=== PATIENT | female | born 1980 | race Caucasian/White ===

== ENCOUNTER 2016-06-25 21:54 | Emergency (ER) | payer MEDICARE ==
[2016-04-23 09:56] VITALS: BMI 17.4
[~2016-06-25 21:54] MED LIST: BREO ELLIPTA 11 EACH INH; CLEOCIN HCL150 MG PO; CLEOCIN HCL75 MG PO; CREON DR 6,0001 EACH PO; ED A HIST; HYDROCODON-ACE1 EAC7 PO; HYDROCODONE-APA1 TAB PO; KEFLEX250 MG PO; KLONOPIN0.5 MG PO; PHENERGAN25 M1 PO; PREDNISONE10 MG PO; PREDNISONE5 MG PO
[2016-06-25 22:42] LABS: APPEARANCE CLEAR (CLEAR); BILIRUBIN NEGATIVE (NEGATIVE); COLOR STRAW (YELLOW); GLUCOSE NEGATIVE (NEGATIVE); KETONE NEGATIVE (NEGATIVE); LEUKOCYTE ESTERASE NEGATIVE (NEGATIVE); NITRITE NEGATIVE (NEGATIVE); PROTEIN NEGATIVE (NEGATIVE); UROBILINOGEN NORMAL (NORMAL)
[2016-06-25 23:37] LABS: UDS - AMPHET NEGATIVE QUAL (NEGATIVE); UDS - BARB NEGATIVE QUAL (NEGATIVE); UDS - BENZO POSITIVE QUAL (NEGATIVE); UDS - COCAINE NEGATIVE QUAL (NEGATIVE); UDS - METH NEGATIVE QUAL (NEGATIVE); UDS - OPIATE POSITIVE QUAL (NEGATIVE); UDS - PCP NEGATIVE QUAL (NEGATIVE); UDS - THC POSITIVE QUAL (NEGATIVE)
== END 2016-06-25 23:24 | disposition home or self-care (01) ==
LOC: D.ER 21:54
PROVIDERS: Emergency Medicine
DX: N39.0 Urinary tract infection, site not specified (principal); R11.10 Vomiting, unspecified; F31.9 Bipolar disorder, unspecified; M06.9 Rheumatoid arthritis, unspecified; G40.909 Epilepsy, unspecified, not intractable, without status epilepticus; F17.200 Nicotine dependence, unspecified, uncomplicated

== ENCOUNTER 2016-08-16 13:20 | Inpatient (IN) | payer MEDICARE ==
[~2016-08-16] VITALS: Ht 149.9 cm; Wt 40.4 kg
--- NOTE | ~2016-08-16 | OP ---
PATIENT NAME: VENESSA GHOSH MEDICAL RECORD: [id number] :84 LOCATION:D.MS [address] ADMISSION DATE:08/16/16 SURGEON: MENDEL GUZMAN MD DATE OF OPERATION: 08/17/2016 PREOPERATIVE DIAGNOSIS: Subacute T11 compression fracture. POSTOPERATIVE DIAGNOSIS: Subacute T11 compression fracture. PROCEDURE: T11 kyphoplasty and T11 bone biopsy. SURGEON: Mendel Guzman MD INDICATION: Venessa Ghosh has a history of rheumatoid arthritis, chronic steroid use, osteoporosis, multiple compression fractures. She has a seizure disorder, sustained a T11 compression fracture secondary to the seizure. She was unable to tolerate a thoracolumbosacral orthosis brace. She could not get out of bed with the brace and anti-inflammatory drugs and narcotic analgesics. Therefore, she failed conservative treatment, has osteoporosis and was therefore taken to operating room for a T11 kyphoplasty and bone biopsy. Preoperative x-rays demonstrated T11 compression fracture on multiple ____. DESCRIPTION AND TECHNIQUE: After induction of general endotracheal anesthesia, the patient was rolled prone on chest and hip rolls. The thoracic spine was prepped and draped in usual sterile fashion. Fluoroscopic x-ray, AP and lateral, localized T11 pedicle. A 1:100,000 epinephrine and 1% lidocaine was infiltrated in the skin. A stab incision was created with #11 blade, a Jamshidi needle was used to cannulate the pedicle at T11 on the left side, with traverse crossing midline, a kyphoplasty balloon was advanced across the midline and inflated under fluoroscopic control. The balloon was withdrawn and then the void created was back filled with methyl methacrylate bone cement. Prior to this, a bone biopsy was sent off to pathology for diagnosis. Next, the cannula was withdrawn and a Steri-Strip was used to cover the puncture wounds. A sterile dressing was applied to the wound. The patient was awakened in good condition and taken to recovery. All counts were reported as correct. ESTIMATED BLOOD LOSS: Minimal. Confirmation on fluoroscopy demonstrated a good distribution of the bone cement. TRANSINT:[id number] Voice Confirmation ID: [id number] DOCUMENT ID: [id number] MENDEL GUZMAN MD CC: [id number] DICTATION DATE: 08/17/16 1314 DENTAL CERAMIST HELPER: 08/17/162134 ADM IN [address] [address]
--- NOTE | ~2016-08-16 | CN ---
PATIENT NAME:HAL GHOSH MEDICAL RECORD: [id number] : 84 LOCATION:D.MS [address]222 ADMIT DATE: 08/16/16 ACCOUNT: [id number] CONSULTING PHYSICIAN: BLAIR GUZMAN MD REFERRING PHYSICIAN: TEA JESUS MD DATE OF CONSULTATION: 08/17/2016 Neurosurgery Consultation HISTORY OF PRESENT ILLNESS: Ms. Ghosh is an elderly-appearing white female who has a long history of rheumatoid arthritis, seizure disorder, chronic steroid use and osteoporosis. She suffered multiple compression fractures in the past, has failed conservative treatment including thoracolumbosacral bracing and narcotic analgesics. She is unable to ambulate in a thoracic brace. PHYSICAL EXAMINATION: GENERAL: An elderly-appearing white female in obvious pain, lying supine on the stretcher, in a TLSO. NEUROLOGIC: She is alert and oriented times 3. Cranial nerves intact. Motor strength is 5/5 and equal in all 4 extremities to detailed testing. She has fair range of motion of her cervical spine. Thoracic spine shows tenderness to percussion at T11. She has no sensory deficit. AP and lateral thoracic spine films show a subacute T11 compression fracture and an old-appearing T6 compression fracture. IMPRESSION: Subacute T11 compression fracture, which has failed conservative treatment secondary to osteoporosis. PLAN: T11 kyphoplasty with bone biopsy. Continue TLSO and narcotic analgesic for pain management. Thank you for the consult. TRANSINT:[id number] Voice Confirmation ID: [id number] DOCUMENT ID: [id number] BLAIR GUZMAN MD CC: [id number] DICTATION DATE: 08/17/16 1317 VETERINARY VIRUS SERUM INSPECTOR: 08/17/162246 [place] [address]
[2016-08-16 16:02] LABS: APPEARANCE CLEAR (CLEAR); BILIRUBIN NEGATIVE (NEGATIVE); COLOR YELLOW (YELLOW); GLUCOSE NEGATIVE (NEGATIVE); KETONE NEGATIVE (NEGATIVE); LEUKOCYTE ESTERASE NEGATIVE (NEGATIVE); NITRITE NEGATIVE (NEGATIVE); PROTEIN NEGATIVE (NEGATIVE); SPECIFIC GRAVITY 1.005 (1.005-1.020); UROBILINOGEN NORMAL (NORMAL)
[2016-08-16 16:20] LABS: BASOPHILS 0.1 % (0.0-2.0); EOSINOPHILS 0 % (0-7); HEMATOCRIT 39.7 % (36.0-48.0); HEMOGLOBIN 12.7 g/dL (12-16); IMMATURE GRANULOCYTES 0.4 % (0-5); LYMPHOCYTES 7.8 % (15-50); MCH 27.6 pg (26.0-34.0); MCV 86.3 fL (80.0-100.0); MEAN PLATELET VOLUME 9.7 fL (7.4-10.4); MONOCYTES 3.3 % (2-11); NEUTROPHILS 88.4 % (40-80); RDW 15.2 % (11.5-14.5)
[2016-08-16 16:24] LABS: PLATELET COUNT 436 10x3/uL (130-400)
[2016-08-16 16:40] LABS: ALBUMIN 3.7 g/dL (3.4-5.0); ALKALINE PHOSPHATASE 74 U/L (46-116); ALT (SGPT) 16 U/L (10-68); BILIRUBIN - TOTAL 0.44 mg/dL (0.2-1.3); CALC OSMOLALITY 272 mosm/kg (275-300); CALCIUM 8.9 mg/dL (8.5-10.1); CARBON DIOXIDE 26.9 mmol/L (21.0-32.0); CHLORIDE - SERUM 99 mmol/L (98-107); CREATININE - SERUM 0.7 mg/dL (0.6-1.3); POTASSIUM - SERUM 3.8 mmol/L (3.5-5.1); PROTEIN - SERUM 7.2 g/dL (6.4-8.2); SODIUM 136 mmol/L (136-145); UREA NITROGEN 9 mg/dL (7-18); eGFR NON AFRICAN AMERICAN > 90 mL/min (90-120)
[2016-08-16 16:41] LABS: GLUCOSE 129 mg/dL (74-106)
--- NOTE | 2016-08-16 17:40 | NUR ---
PT TO ROOM 2222 FROM ER VIA [employer].PT WITHOUT DISTRESS AT PRESENT. AT [facility].ORIENTATION TO ROOM.CALL LIGHT IN REACH
[2016-08-16] MEDS ORDERED: KEPPRA750 MG PO (17:41)
[2016-08-16] MEDS ORDERED: YASMIN 28 TABLE1 TAB (17:43)
[2016-08-16] MEDS ORDERED: ZOFRAN ODT4 MG/UDTAB PO (17:43)
--- NOTE | 2016-08-16 18:30 | NUR ---
MEDS ORDERED. ASSESSMENT PER ADMIT PACK.CALL LIGHT IN REACH
[2016-08-16 18:47] VITALS: BP 108/78; Ht 149.9 cm; Wt 40.4 kg
[2016-08-16 19:00] VITALS: BP 107/80
--- NOTE | 2016-08-16 19:25 | NUR ---
RECIEVED SHIFT REPORT. PT IS LYING IN BED. ALERT AND ORIENTED AND ABLE TO VERBALIZE NEEDS. IV IS PATENT AND FLUIDS ARE RUNNING PER ORDER. PT IS ON BEDREST AT THIS TIME. SCD'S ON. PT STATES PAIN IS 8/10 WITH SQL BI DEVELOPER PUMP. NO NEEDS ARE VERBALIZED AT THIS TIME. WILL CONTINUE TO MONITOR. SIDE RAILS ARE UP X 2. BED IS IN LOWEST POSITION. CALL LIGHT IS WITHIN REACH.
--- NOTE | 2016-08-16 20:20 | NUR ---
SHIFT ASSESSMENT COMPLETED. NIGHT MEDS GIVEN WITH NO PROBLEMS. PT C/O PAIN 12/20. ADMINISTERED PRESCRIBED PRN BOLUS 0.4 MG ON NIGHT WAREHOUSE SELECTOR PUMP. NO FURTHER NEEDS ARE VOICED. WILL MONITOR. SIDE RAILS X 2. BED LOW. CALL LIGHT IN REACH.
[2016-08-17] VITALS: BP 112/86
[2016-08-17 04:00] VITALS: BP 110/71
[2016-08-17 05:48] LABS: BASOPHILS 0.1 % (0.0-2.0); EOSINOPHILS 0.7 % (0-7); HEMOGLOBIN 10.4 g/dL (12-16); IMMATURE GRANULOCYTES 0.4 % (0-5); LYMPHOCYTES 13.4 % (15-50); MCH 26.3 pg (26.0-34.0); MCHC 30.6 g/dL (31.0-37.0); MCV 85.9 fL (80.0-100.0); MEAN PLATELET VOLUME 9.7 fL (7.4-10.4); MONOCYTES 12.5 % (2-11); NEUTROPHILS 72.9 % (40-80); PLATELET COUNT 388 10x3/uL (130-400); RBC 3.96 10x6/uL (4.00-5.40); RDW 14.8 % (11.5-14.5)
[2016-08-17 06:14] LABS: ALBUMIN 3.2 g/dL (3.4-5.0); ALKALINE PHOSPHATASE 57 U/L (46-116); ALT (SGPT) 14 U/L (10-68); CALCIUM 8.2 mg/dL (8.5-10.1); CARBON DIOXIDE 28.2 mmol/L (21.0-32.0); CHLORIDE - SERUM 98 mmol/L (98-107); CREATININE - SERUM 0.6 mg/dL (0.6-1.3); GLUCOSE 95 mg/dL (74-106); PROTEIN - SERUM 6.8 g/dL (6.4-8.2); SODIUM 134 mmol/L (136-145); eGFR NON AFRICAN AMERICAN > 90 mL/min (90-120)
[2016-08-17 06:45] LABS: CALC OSMOLALITY 264 mosm/kg (275-300); UREA NITROGEN 4 mg/dL (7-18)
--- NOTE | 2016-08-17 07:25 | NUR ---
ASSESSMENT PER FLOW SHEET.PT WITHOUT DISTRES.BRACE IN PLACE.GEOTHERMAL PRODUCTION MANAGER FOR PAIN.CALL LIGHT IN REACH
[2016-08-17 08:03] VITALS: BP 115/83
--- NOTE | 2016-08-17 09:50 | NUR ---
CONSENTS TO CHART
--- NOTE | 2016-08-17 10:51 | NUR ---
Patient Name: HAL JAMES Admission Status: ER Accout number: [id number] Admission Date: 08-16-2016 : 1980 Admission Diagnosis:FATIGUE FRACTURE OF VERTEBRA, THORACIC REGION, INIT FOR Attending: TANYA Current LOS: 1 Anticipated DC Date: 08-20-2016 Planned Disposition: Home Primary Insurance: MEDICARE A & B Discharge Planning Comments: CM MET WITH PATIENT AND SPOUSE (JAM) REGARDING D/C NEEDS AND PLANS. PATIENT STATED HER SPOUSE WILL DRIVE HER HOME AT DISCHARGE. PATIENT HAS 2 STEPS W/RAILS TO ENTER HOME AND NO STAIRS INSIDE. PATIENT STATED SHE IS INDEPENDENT WITH HER CARE AND HAS NO DME AT HOME. PATIENTS PCP IS DR. PATTON IN [place] AND SHE USES [facility] ON [address]. PATIENT DOES NOT THINK SHE WILL NEED HOME HEALTH AND SPOUSE STATED HE WOULD BE AT HOME WITH HER. CM WILL CONTINUE TO FOLLOW PATIENT WITH D/C NEEDS AND PLANS. PCP DR. PATTON ([place]) [facility] ON [address]- [phone] JAM (SPOUSE) [phone] Breaker Engineer: Bita Aguilar Is the patient Alert and Oriented? Yes 0 * How many steps to enter\exit or inside your home? 2 RAIL 0 * PCP DR. PATTON ([place]) 0 * Pharmacy [facility] [address] 0 * Preadmission Environment Home with Family 0 * ADLs Independent 0 * Equipment None 0 * List name and contact numbers for known caregivers / representatives who currently or will assist patient after discharge: JAM (SPOUSE) [phone] 0 * Community resources currently utilized None 0 * Additional services required to return to the preadmission environment? Yes 0 * Can the patient safely return to the preadmission environment? Yes 0 * Has this patient been hospitalized within the prior 30 days at any hospital? No 0 Grand Total: 0
--- NOTE | 2016-08-17 11:36 | NUR ---
PRE MEDS ORDERED.TO OR VIA BED
--- NOTE | 2016-08-17 12:57 | NUR ---
1252: UNABLE TO FIND FAMILY EXT [phone],[phone]
--- NOTE | 2016-08-17 13:28 | NUR ---
DEMEROL GIVEN FOR SHIVERING. POSITIVE RESPONE NOTED
[2016-08-17 13:45] VITALS: BP 117/86
--- NOTE | 2016-08-17 13:45 | NUR ---
RECEIVED BACK TO ROOM 2222 FROM RECOVERY ROOM VIA BED. VSS. FATHER IN ROOM. CALL LIGHT IN REACH.
--- NOTE | 2016-08-17 13:45 | NUR ---
BACK FROM PACU VIA BED,WITHOUT DISTRESS.CALL LIGHT IN REACH
--- NOTE | 2016-08-17 15:30 | NUR ---
REPORT RECEIVED FROM ALIYA MATIAS. NO NEEDS VOICED AT THIS TIME. CALL LIGHT IN REACH.
--- NOTE | 2016-08-17 15:48 | NUR ---
MRI SCANNER IS DOWN. WILL DO WHEN SCANNER COMES BACK UP.
--- NOTE | 2016-08-17 17:12 | NUR ---
ASSISTED PATIENT WITH REPOSITIONING IN BED AND GETTING COMFORTABLE. NO OTHER NEEDS VOICED AT THIS TIME. CALL LIGHT IN REACH.
--- NOTE | 2016-08-17 18:11 | NUR ---
NO CHANGES IN INITIAL ASSESSMENT. CALL LIGHT IN REACH. SCDs TO BLE. WILL CONTINUE WITH PLAN OF CARE.
[2016-08-17 20:00] VITALS: BP 90/48
[2016-08-18] VITALS: BP 86/57
--- NOTE | 2016-08-18 00:41 | NUR ---
PT IS AWAKE WITH THE ASSIGNED NURSE IN THE ROOM. SHE IS WEARING HER BACK BRACE AND KEEPING HER PAIN UNDER CONTROL WITH A AUTOMATION TECH WHICH IS ORDERED. RESPIRATIONS ARE EASY AND UNLABORED WITH NO DISTRESS NOTED. THE BED IS LOW, RAILS UP X'S 2 WITH THE CALL LIGHT AT HAND.
--- NOTE | 2016-08-18 01:57 | NUR ---
INVASIVE CARDIOVASCULAR TECHNOLOGIST SYRINGE CHANGED OUT, REGLAN GIVEN FOR NAUSEA
[2016-08-18 04:00] VITALS: BP 90/64
[2016-08-18 05:10] LABS: BASOPHILS 0.1 % (0.0-2.0); EOSINOPHILS 0.6 % (0-7); HEMATOCRIT 28.1 % (36.0-48.0); HEMOGLOBIN 8.5 g/dL (12-16); IMMATURE GRANULOCYTES 0.3 % (0-5); MCH 26.7 pg (26.0-34.0); MCHC 30.2 g/dL (31.0-37.0); MEAN PLATELET VOLUME 9.5 fL (7.4-10.4); MONOCYTES 9.2 % (2-11); NEUTROPHILS 77.8 % (40-80); PLATELET COUNT 344 10x3/uL (130-400); RBC 3.18 10x6/uL (4.00-5.40); RDW 15.2 % (11.5-14.5)
[2016-08-18 05:20] LABS: MCV 88.4 fL (80.0-100.0); WBC 10.6 10x3/uL (4.8-10.8)
[2016-08-18 05:30] LABS: ALBUMIN 2.6 g/dL (3.4-5.0); ALKALINE PHOSPHATASE 55 U/L (46-116); ALT (SGPT) 12 U/L (10-68); BILIRUBIN - TOTAL 0.18 mg/dL (0.2-1.3); CALCIUM 7.7 mg/dL (8.5-10.1); CARBON DIOXIDE 28.1 mmol/L (21.0-32.0); CHLORIDE - SERUM 105 mmol/L (98-107); CREATININE - SERUM 0.5 mg/dL (0.6-1.3); GLUCOSE 97 mg/dL (74-106); PROTEIN - SERUM 5.6 g/dL (6.4-8.2); SODIUM 139 mmol/L (136-145); eGFR NON AFRICAN AMERICAN > 90 mL/min (90-120)
[2016-08-18 05:33] LABS: CALC OSMOLALITY 273 mosm/kg (275-300); POTASSIUM - SERUM 3.7 mmol/L (3.5-5.1); UREA NITROGEN 0 mg/dL (7-18)
--- NOTE | 2016-08-18 07:30 | NUR ---
RECIEVED PT DURING WALKING ROUNDS. PT RESTING IN BED WITH COMPLAINTS OF PAIN OF A 7 ON A SCALE OF 1-10. RESOURCE PROGRAM TEACHER IN USE. ASSESSMENT DONE PER FLOWSHEET. BED IN LOW POSITION AND CALL LIGHT WITHIN REACH. WILL CONTINUE TO MONITOR.
[2016-08-18 08:25] VITALS: BP 102/69
--- NOTE | 2016-08-18 08:30 | NUR ---
SURVEY WORKER BOLUS GIVEN AT THIS TIME PER ORDER.
--- NOTE | 2016-08-18 10:30 | NUR ---
PATIENT IS UP OUT OF ROOM AND AMBULATING AROUND THE NURSING UNIT. PATIENT DENIES ANY PROBLEMS AT PRESENT TIME. WILL CONTINUE TO MONITOR PATIENT.
--- NOTE | 2016-08-18 11:40 | NUR ---
DC'D BUCKLE COVERER AT THIS TIME. PT TAKEN FOR MRI.
== END 2016-08-18 17:14 | disposition home or self-care (01) | DRG 478 ==
LOC: D.ER 13:20 → D.MS 15:45
PROVIDERS: Neurological Surgery; Physician Assistant Medical; ADMIT Family Medicine
PROC: 0PB43ZX Excision of Thoracic Vertebra, Percutaneous Approach, Diagnostic (ICD-10-PCS; 2016-08-17)
PROC: 0PU43JZ Supplement Thoracic Vertebra with Synthetic Substitute, Percutaneous Approach (ICD-10-PCS; 2016-08-17)
PROC: 0PS43ZZ Reposition Thoracic Vertebra, Percutaneous Approach (ICD-10-PCS; principal; 2016-08-17 12:00)
DX: M48.44XA Fatigue fracture of vertebra, thoracic region, initial encounter for fracture (principal); F17.203 Nicotine dependence unspecified, with withdrawal; F44.5 Conversion disorder with seizures or convulsions; J40 Bronchitis, not specified as acute or chronic; F41.9 Anxiety disorder, unspecified; F32.9 Major depressive disorder, single episode, unspecified; M81.0 Age-related osteoporosis without current pathological fracture

== ENCOUNTER 2016-08-23 11:35 | Emergency (ER) | payer MEDICARE ==
[2016-08-16 18:47] VITALS: BMI 18.0
[~2016-08-23 11:35] MED LIST changes: +KEPPRA750 MG PO; +YASMIN 28 TABLE1 TAB; +ZOFRAN ODT4 MG/UDTAB PO
== END 2016-08-23 13:50 | disposition home or self-care (01) ==
LOC: D.ER 11:35
DX: G89.18 Other acute postprocedural pain (principal); M54.6 Pain in thoracic spine

== ENCOUNTER 2016-09-07 16:19 | Emergency (ER) | payer MEDICARE ==
[2016-08-16 18:47] VITALS: BMI 18.0
== END 2016-09-07 16:50 | disposition left against medical advice (07) ==
LOC: D.ER 16:19
DX: Z02.9 Encounter for administrative examinations, unspecified (principal)

== ENCOUNTER 2016-09-13 19:07 | Emergency (ER) | payer MEDICARE ==
[2016-08-16 18:47] VITALS: BMI 18.0
== END 2016-09-13 21:05 | disposition home or self-care (01) ==
LOC: D.ER 19:07
DX: M06.9 Rheumatoid arthritis, unspecified (principal); Z98.890 Other specified postprocedural states; F17.200 Nicotine dependence, unspecified, uncomplicated

== ENCOUNTER 2016-11-09 08:48 | Emergency (ER) | payer MEDICARE ==
[2016-08-16 18:47] VITALS: BMI 18.0
== END 2016-11-09 10:18 | disposition home or self-care (01) ==
LOC: D.ER 08:48
DX: R10.2 Pelvic and perineal pain (principal); F31.89 Other bipolar disorder; G40.909 Epilepsy, unspecified, not intractable, without status epilepticus; F17.200 Nicotine dependence, unspecified, uncomplicated

== ENCOUNTER 2016-12-18 17:33 | Emergency (ER) | payer MEDICARE ==
[2016-08-16 18:47] VITALS: BMI 18.0
== END 2016-12-18 21:38 | disposition home or self-care (01) ==
LOC: D.ER 17:33
DX: J06.9 Acute upper respiratory infection, unspecified (principal); B37.0 Candidal stomatitis; F31.89 Other bipolar disorder; G40.909 Epilepsy, unspecified, not intractable, without status epilepticus; R49.0 Dysphonia; R09.82 Postnasal drip; J02.9 Acute pharyngitis, unspecified; R53.1 Weakness

== ENCOUNTER 2016-12-20 17:03 | Emergency (ER) | payer MEDICARE ==
[2016-08-16 18:47] VITALS: BMI 18.0
[2016-12-20 18:01] LABS: BASOPHILS 0.2 % (0-2); EOSINOPHILS 1.1 % (0-7); HEMATOCRIT 40.5 % (36.0-48.0); HEMOGLOBIN 12.9 g/dL (12-16); IMMATURE GRANULOCYTES 1.6 % (0-5); LYMPHOCYTES 17.4 % (15-50); MCH 27.2 pg (26.0-34.0); MCHC 31.9 g/dL (31.0-37.0); MCV 85.4 fL (80.0-100.0); MEAN PLATELET VOLUME 9.7 fL (7.4-10.4); MONOCYTES 7.9 % (2-11); NEUTROPHILS 71.8 % (40-80); PLATELET COUNT 493 10x3/uL (130-400); RBC 4.74 10x6/uL (4.00-5.40); RDW 16.6 % (11.5-14.5)
[2016-12-20 18:07] LABS: APPEARANCE CLEAR (CLEAR); BILIRUBIN NEGATIVE (NEGATIVE); COLOR YELLOW (YELLOW); GLUCOSE NEGATIVE (NEGATIVE); KETONE NEGATIVE (NEGATIVE); LEUKOCYTE ESTERASE NEGATIVE (NEGATIVE); NITRITE NEGATIVE (NEGATIVE); PROTEIN NEGATIVE (NEGATIVE); SPECIFIC GRAVITY 1.005 (1.005-1.020); UROBILINOGEN NORMAL (NORMAL)
[2016-12-20 18:44] LABS: ALBUMIN 3.2 g/dL (3.4-5.0); ALKALINE PHOSPHATASE 88 U/L (46-116); ALT (SGPT) 23 U/L (10-68); BILIRUBIN - TOTAL 0.21 mg/dL (0.2-1.3); CALC OSMOLALITY 268 mosm/kg (275-300); CALCIUM 8.7 mg/dL (8.5-10.1); CARBON DIOXIDE 27.4 mmol/L (21.0-32.0); CHLORIDE - SERUM 100 mmol/L (98-107); CREATININE - SERUM 0.8 mg/dL (0.6-1.3); GLUCOSE 93 mg/dL (74-106); PROTEIN - SERUM 7.1 g/dL (6.4-8.2); SODIUM 136 mmol/L (136-145); UREA NITROGEN 5 mg/dL (7-18); eGFR NON AFRICAN AMERICAN 87 mL/min (90-120)
[2016-12-20 18:51] LABS: POTASSIUM - SERUM 2.9 mmol/L (3.5-5.1)
[2016-12-20 19:23] LABS: HCG URINE NEGATIVE (NEGATIVE)
== END 2016-12-20 20:09 | disposition home or self-care (01) ==
LOC: D.ER 17:03
PROVIDERS: Emergency Medicine; Nurse Practitioner Acute Care
DX: K50.90 Crohn's disease, unspecified, without complications (principal); J02.9 Acute pharyngitis, unspecified; E87.6 Hypokalemia; R50.9 Fever, unspecified; R05 Cough; R53.81 Other malaise; F17.200 Nicotine dependence, unspecified, uncomplicated

== ENCOUNTER 2016-12-29 17:22 | Emergency (ER) | payer MEDICARE ==
[2016-08-16 18:47] VITALS: BMI 18.0
== END 2016-12-29 18:32 | disposition home or self-care (01) ==
LOC: D.ER 17:22
DX: M79.641 Pain in right hand (principal); K50.90 Crohn's disease, unspecified, without complications; F31.89 Other bipolar disorder; F17.200 Nicotine dependence, unspecified, uncomplicated

== ENCOUNTER 2017-01-04 04:11 | Emergency (ER) | payer MEDICARE ==
[2016-08-16 18:47] VITALS: BMI 18.0
== END 2017-01-04 05:00 | disposition home or self-care (01) ==
LOC: D.ER 04:11
DX: M06.9 Rheumatoid arthritis, unspecified (principal); K50.90 Crohn's disease, unspecified, without complications; F31.89 Other bipolar disorder; G40.909 Epilepsy, unspecified, not intractable, without status epilepticus

== ENCOUNTER 2017-02-24 19:38 | Emergency (ER) | payer MEDICARE ==
[2016-08-16 18:47] VITALS: BMI 18.0
== END 2017-02-24 21:30 | disposition home or self-care (01) ==
LOC: D.ER 19:38
DX: M06.9 Rheumatoid arthritis, unspecified (principal); K50.90 Crohn's disease, unspecified, without complications

== ENCOUNTER 2017-02-28 13:04 | Emergency (ER) | payer MEDICARE ==
[2016-08-16 18:47] VITALS: BMI 18.0
== END 2017-02-28 14:22 | disposition home or self-care (01) ==
LOC: D.ER 13:04
DX: M79.1 Myalgia (principal); M06.9 Rheumatoid arthritis, unspecified; F17.200 Nicotine dependence, unspecified, uncomplicated

== ENCOUNTER 2017-03-18 10:06 | Inpatient (IN) | payer MEDICARE ==
[~2017-03-18] VITALS: Ht 147.3 cm; Wt 42.6 kg
[2017-03-18 11:52] LABS: HCG SERUM NEGATIVE (NEGATIVE)
[2017-03-18 11:54] LABS: BASOPHILS 0.2 % (0-2); EOSINOPHILS 0.1 % (0-7); HEMATOCRIT 40.1 % (36.0-48.0); HEMOGLOBIN 12.9 g/dL (12-16); IMMATURE GRANULOCYTES 0.6 % (0-5); MCHC 32.2 g/dL (31.0-37.0); MCV 87.2 fL (80.0-100.0); MEAN PLATELET VOLUME 9.7 fL (7.4-10.4); MONOCYTES 7.7 % (2-11); NEUTROPHILS 78.4 % (40-80); PLATELET COUNT 583 10x3/uL (130-400); RDW 16.8 % (11.5-14.5); UDS - AMPHET NEGATIVE QUAL (NEGATIVE); UDS - BARB NEGATIVE QUAL (NEGATIVE); UDS - BENZO NEGATIVE QUAL (NEGATIVE); UDS - COCAINE NEGATIVE QUAL (NEGATIVE); UDS - OPIATE NEGATIVE QUAL (NEGATIVE); UDS - PCP NEGATIVE QUAL (NEGATIVE); UDS - THC POSITIVE QUAL (NEGATIVE); WBC 14.2 10x3/uL (4.8-10.8)
[2017-03-18 12:08] LABS: APPEARANCE CLEAR (CLEAR); BACTERIA MODERATE /hpf (NONE SEEN); BILIRUBIN NEGATIVE (NEGATIVE); COLOR YELLOW (YELLOW); EPITHELIAL CELLS 0-5 /hpf (0-5); GLUCOSE NEGATIVE (NEGATIVE); KETONE NEGATIVE (NEGATIVE); NITRITE NEGATIVE (NEGATIVE); PROTEIN NEGATIVE (NEGATIVE); RED CELLS - URINE >50 /hpf (0-5); UROBILINOGEN NORMAL (NORMAL); WHITE CELLS - URINE OCC /hpf (0-5)
[2017-03-18 12:22] LABS: CALC OSMOLALITY 274 mosm/kg (275-300); CALCIUM 8.6 mg/dL (8.5-10.1); CARBON DIOXIDE 26.3 mmol/L (21.0-32.0); CHLORIDE - SERUM 101 mmol/L (98-107); CREATININE - SERUM 0.7 mg/dL (0.6-1.3); GLUCOSE 108 mg/dL (74-106); LIPASE 205 U/L (73-393); POTASSIUM - SERUM 3.5 mmol/L (3.5-5.1); SODIUM 138 mmol/L (136-145); UREA NITROGEN 7 mg/dL (7-18); eGFR NON AFRICAN AMERICAN > 90 mL/min (90-120)
--- NOTE | 2017-03-18 16:36 | NUR ---
RECIEVED TO ROOM FROM ER VIA WHEELCHAIR ACCOMPANIED BY ER STAFF PT AMBULATED TO BED COMPLAINS OF ABD PAIN
[2017-03-18] MEDS ORDERED: NORCO 7.5/325 T1 TA1 PO (16:50)
[2017-03-18 17:06] VITALS: BP 116/78; Ht 147.3 cm; Wt 42.6 kg
--- NOTE | 2017-03-18 21:26 | NUR ---
REC'D LYING IN BED. ALERT AND ORIENTED X4. REPORTED PAIN 7/10 IN ABDOMEN. DENIED NEEDS AT THIS TIME. WILL ADMIN PAIN MEDS PRESCRIBED. INSTRUCTED TO CALL IF NEEDED ANYTHING, VERBALIZED UNDERSTANDING. BED LOW, LOCKED, CALL LIGHT IN REACH. WILL CONT TO MONITOR, NO DISTRESS NOTED.
[2017-03-19] VITALS: BP 108/76
--- NOTE | 2017-03-19 03:00 | NUR ---
PT RESTING IN BED WITH NO DISTRESS. RESPIRATIONS EVEN AND UNLABORED. SIDE RAILS X 2. BED LOW. CALL LIGHT IN REACH.
[2017-03-19 04:00] VITALS: BP 110/74
[2017-03-19 05:28] LABS: BASOPHILS 0.1 % (0-2); EOSINOPHILS 0 % (0-7); HEMATOCRIT 34.1 % (36.0-48.0); HEMOGLOBIN 10.8 g/dL (12-16); IMMATURE GRANULOCYTES 0.4 % (0-5); LYMPHOCYTES 11.6 % (15-50); MCHC 31.7 g/dL (31.0-37.0); MCV 88.3 fL (80.0-100.0); MEAN PLATELET VOLUME 9.2 fL (7.4-10.4); MONOCYTES 3.8 % (2-11); NEUTROPHILS 84.1 % (40-80); RBC 3.86 10x6/uL (4.00-5.40); RDW 16.7 % (11.5-14.5)
[2017-03-19 05:38] LABS: PLATELET COUNT 458 10x3/uL (130-400)
[2017-03-19 05:51] LABS: ALBUMIN 2.8 g/dL (3.4-5.0); ALKALINE PHOSPHATASE 52 U/L (46-116); ALT (SGPT) 11 U/L (10-68); CALCIUM 7.6 mg/dL (8.5-10.1); CARBON DIOXIDE 26.5 mmol/L (21.0-32.0); CHLORIDE - SERUM 105 mmol/L (98-107); CREATININE - SERUM 0.7 mg/dL (0.6-1.3); PROTEIN - SERUM 6.1 g/dL (6.4-8.2); SODIUM 139 mmol/L (136-145); eGFR NON AFRICAN AMERICAN > 90 mL/min (90-120)
[2017-03-19 05:52] LABS: CALC OSMOLALITY 276 mosm/kg (275-300); GLUCOSE 160 mg/dL (74-106); UREA NITROGEN 1 mg/dL (7-18)
[2017-03-19 06:55] LABS: ERYTHROCYTE SEDIMENTATION RATE 20 mm/hr (0-20)
--- NOTE | 2017-03-19 08:00 | NUR ---
PT AWAKE AND ALERT ORINETD X 3 LUNGS CLEAR BILATERALLY VOICES ALL NEEDS TO STAFF MOBILE PER SELF PROPEL. SEE FLOWSHEET FOR ASSESSMENT
[2017-03-19 09:38] VITALS: BP 108/73
--- NOTE | 2017-03-19 13:00 | NUR ---
PIV RESITED DUE TO INFILTRATION MOVED TO RIGHT WRIST. 22 GA X 1 STICK TOLERATED WELL. PAIN MEDS PER ORDER GIVEN
[2017-03-19 13:11] VITALS: BP 123/79
[2017-03-19 16:23] VITALS: BP 123/87
[2017-03-19 20:00] VITALS: BP 111/72
--- NOTE | 2017-03-19 21:27 | NUR ---
PATIENT VERBALIZED NAUSEA. ADMINSTERED ZOFRAN IV. PATIENT DENIES ANY OTHER NEEDS AT THIS TIME. RESPIRATIONS ARE EVEN AND UNLABORED ON ROOM AIR.
--- NOTE | 2017-03-20 02:22 | NUR ---
IS RESTING. WANTED SOMETHING FOR PAIN. ADMIN PRESCRIBED. INSTRUCTED TO CALL IF NEEDED ANYTHING, BED LOW, LOCKED CALL LIGHT IN REACH.
[2017-03-20 04:00] VITALS: BP 110/70
[2017-03-20 05:37] LABS: BASOPHILS 0.2 % (0-2); EOSINOPHILS 0.3 % (0-7); HEMATOCRIT 31.5 % (36.0-48.0); HEMOGLOBIN 9.7 g/dL (12-16); IMMATURE GRANULOCYTES 0.5 % (0-5); LYMPHOCYTES 20.4 % (15-50); MCH 27.9 pg (26.0-34.0); MCHC 30.8 g/dL (31.0-37.0); MEAN PLATELET VOLUME 9.9 fL (7.4-10.4); MONOCYTES 10.4 % (2-11); NEUTROPHILS 68.2 % (40-80); PLATELET COUNT 412 10x3/uL (130-400); RBC 3.48 10x6/uL (4.00-5.40); RDW 16.7 % (11.5-14.5)
[2017-03-20 05:42] LABS: MCV 90.5 fL (80.0-100.0); WBC 12.1 10x3/uL (4.8-10.8)
[2017-03-20 05:50] LABS: ALBUMIN 2.5 g/dL (3.4-5.0); ALKALINE PHOSPHATASE 49 U/L (46-116); ALT (SGPT) 10 U/L (10-68); CALCIUM 7.3 mg/dL (8.5-10.1); CHLORIDE - SERUM 108 mmol/L (98-107); POTASSIUM - SERUM 3.8 mmol/L (3.5-5.1); PROTEIN - SERUM 5.3 g/dL (6.4-8.2); SODIUM 143 mmol/L (136-145); UREA NITROGEN 1 mg/dL (7-18)
[2017-03-20 05:52] LABS: CALC OSMOLALITY 280 mosm/kg (275-300); CARBON DIOXIDE 28.8 mmol/L (21.0-32.0); CREATININE - SERUM 0.5 mg/dL (0.6-1.3); GLUCOSE 105 mg/dL (74-106); eGFR NON AFRICAN AMERICAN > 90 mL/min (90-120)
--- NOTE | 2017-03-20 07:22 | NUR ---
PATIENT IN BED WITH IV INTACT AT THIS TIME. NO COMPLAINTS. STATED WOULD LIKE NURSE TO GIVE ZOFRAN WHEN AVAILABLE. NOTIFIED UTILITY BILL COLLECTOR. DENIES ANY NEEDS. CALL LIGHT WITHIN REACH.
[2017-03-20 08:32] VITALS: BP 145/93
--- NOTE | 2017-03-20 12:07 | NUR ---
Patient Name: HAL JAMES Admission Status: ER Accout number: [id number] Admission Date: 03-18-2017 : 1980 Admission Diagnosis: Attending: BREANNA PAZ Current LOS: 2 Anticipated DC Date: 03-22-2017 Planned Disposition: Home Primary Insurance: MEDICARE A & B Discharge Planning Comments: CM MET WITH PATIENT REGARDING D/C NEEDS AND PLANS. PATIENT STATED SHE LIVES WITH HER SPOUSE (JAM) AND HE WILL DRIVE HER HOME AT DISCHARGE. PATIENT STATED SHE HAS 3 STEPS W/RAILS TO ENTER HER HOME AND NO STAIRS INSIDE. PATIENT IS INDEPENDENT WITH HER CARE AND HAS NO DME AT HOME. PATIENTS PCP IS DR. PATTON IN [place] AND USES [facility] ON [address]. PATIENT IS REFUSING HOME HEALTH AT THIS TIME. CM WILL CONTINUE TO FOLLOW PATIENT WITH D/C NEEDS AND PLANS. PCP DR. POOJA MONTEIRO ON [address] [phone] JAM (SPOUSE) [phone] Research Assoc: Bita Aguilar Is the patient Alert and Oriented? Yes 0 * How many steps to enter\exit or inside your home? 3 W/RAILS 0 * PCP DR. PATTON ([place]) 0 * Pharmacy [facility] [address] 0 * Preadmission Environment Home with Family 0 * ADLs Independent 0 * Equipment None 0 * List name and contact numbers for known caregivers / representatives who currently or will assist patient after discharge: JAM (SPOUSE) [phone] 0 * Community resources currently utilized None 0 * Additional services required to return to the preadmission environment? Yes 0 * Can the patient safely return to the preadmission environment? Yes 0 * Has this patient been hospitalized within the prior 30 days at any hospital? No 0 Grand Total: 0
[2017-03-20 12:59] VITALS: BP 129/90
[2017-03-20 16:24] VITALS: BP 130/80
[2017-03-20 23:58] VITALS: BP 127/81
--- NOTE | 2017-03-21 00:16 | NUR ---
PT STATED PAIN IS A LITTLE BETTER, PT IS LYING ON LEFT SIDE IN POSITION, STATED HURTS LESS WHEN SHE IS IN THIS POSITION, BED IN LOW POSITION CALL LIGTH IN REACH
[2017-03-21 02:33] VITALS: BP 109/59
[2017-03-21 06:14] LABS: BASOPHILS 0.2 % (0-2); EOSINOPHILS 0.4 % (0-7); HEMATOCRIT 33.4 % (36.0-48.0); HEMOGLOBIN 10.3 g/dL (12-16); IMMATURE GRANULOCYTES 0.6 % (0-5); LYMPHOCYTES 22.5 % (15-50); MCH 27.6 pg (26.0-34.0); MCHC 30.8 g/dL (31.0-37.0); MCV 89.5 fL (80.0-100.0); MEAN PLATELET VOLUME 9.8 fL (7.4-10.4); MONOCYTES 10.4 % (2-11); NEUTROPHILS 65.9 % (40-80); PLATELET COUNT 489 10x3/uL (130-400); RBC 3.73 10x6/uL (4.00-5.40); RDW 16.7 % (11.5-14.5); WBC 12.1 10x3/uL (4.8-10.8)
[2017-03-21 06:30] VITALS: BP 126/72
[2017-03-21 06:43] LABS: ALBUMIN 2.7 g/dL (3.4-5.0); ALKALINE PHOSPHATASE 50 U/L (46-116); ALT (SGPT) 12 U/L (10-68); BILIRUBIN - TOTAL 0.18 mg/dL (0.2-1.3); CALC OSMOLALITY 280 mosm/kg (275-300); CALCIUM 7.8 mg/dL (8.5-10.1); CARBON DIOXIDE 28.7 mmol/L (21.0-32.0); CHLORIDE - SERUM 106 mmol/L (98-107); GLUCOSE 93 mg/dL (74-106); PROTEIN - SERUM 5.9 g/dL (6.4-8.2); SODIUM 143 mmol/L (136-145); UREA NITROGEN 1 mg/dL (7-18)
[2017-03-21 06:47] LABS: CREATININE - SERUM 0.7 mg/dL (0.6-1.3); eGFR NON AFRICAN AMERICAN > 90 mL/min (90-120)
[2017-03-21 10:05] VITALS: BP 139/81
[2017-03-21 13:29] VITALS: BP 97/71
[2017-03-21 15:25] LABS: MAGNESIUM - SERUM 2.2 mg/dL (1.8-2.4); PHOSPHOROUS 2.5 mg/dL (2.5-4.9)
[2017-03-21 16:56] VITALS: BP 126/73
[2017-03-21 20:00] VITALS: BP 144/88
--- NOTE | 2017-03-21 21:00 | NUR ---
RECEIVED CARE OF PT. PT LYING IN BED ON LEFT SIDE. REPORTS NO NEEDS AT THIS TIME. IV INFUSING TO PATENT RIGHT FA IV. QUALIFIED CRAFT WORKER ELECTRICIAN AT SIDE. CALL LIGHT WITHIN REACH.
[2017-03-22] VITALS: BP 138/80
[2017-03-22 04:00] VITALS: BP 86/58
--- NOTE | 2017-03-22 04:49 | NUR ---
ASSESSED, PT IS ASLEEP WITH EASY RESPIRATIONS AND NO DISTRESS NOTED. HER FAMILY MEMBER IS AT THE BEDSIDE AWAKE. THE BED IS LOW, RAILS UP X'S 2 WITH THE CALL LIGHT AT HAND.
[2017-03-22 06:07] LABS: BASOPHILS 0.1 % (0-2); EOSINOPHILS 1.2 % (0-7); HEMOGLOBIN 9.9 g/dL (12-16); IMMATURE GRANULOCYTES 0.5 % (0-5); LYMPHOCYTES 29.4 % (15-50); MCH 27.7 pg (26.0-34.0); MCHC 30.9 g/dL (31.0-37.0); MCV 89.6 fL (80.0-100.0); MEAN PLATELET VOLUME 9.4 fL (7.4-10.4); MONOCYTES 12.7 % (2-11); NEUTROPHILS 56.1 % (40-80); PLATELET COUNT 421 10x3/uL (130-400); RBC 3.57 10x6/uL (4.00-5.40); RDW 16.2 % (11.5-14.5)
[2017-03-22 06:14] LABS: WBC 8.6 10x3/uL (4.8-10.8)
[2017-03-22 06:35] LABS: ALBUMIN 2.4 g/dL (3.4-5.0); ALKALINE PHOSPHATASE 44 U/L (46-116); ALT (SGPT) 10 U/L (10-68); CALC OSMOLALITY 280 mosm/kg (275-300); CALCIUM 7.2 mg/dL (8.5-10.1); CARBON DIOXIDE 30.7 mmol/L (21.0-32.0); CHLORIDE - SERUM 107 mmol/L (98-107); CREATININE - SERUM 0.6 mg/dL (0.6-1.3); GLUCOSE 105 mg/dL (74-106); MAGNESIUM - SERUM 1.8 mg/dL (1.8-2.4); PHOSPHOROUS 2.3 mg/dL (2.5-4.9); PROTEIN - SERUM 5.1 g/dL (6.4-8.2); SODIUM 143 mmol/L (136-145); UREA NITROGEN 1 mg/dL (7-18); eGFR NON AFRICAN AMERICAN > 90 mL/min (90-120)
[2017-03-22 06:37] LABS: POTASSIUM - SERUM 2.9 mmol/L (3.5-5.1)
--- NOTE | 2017-03-22 08:10 | NUR ---
PT SEEN AND ASSESSED. COMPLAINTS OF ABDOMINAL PAIN AND NAUSEA. MEDS GIVEN. STATES HAD DECENT NIGHT-CALL LIGHT IN REACH
[2017-03-22 08:11] VITALS: BP 104/45
[2017-03-22 13:48] VITALS: BP 128/81
[2017-03-22 16:03] VITALS: BP 108/70
--- NOTE | 2017-03-22 19:00 | NUR ---
RESITED THE PATIENT'S IV WITH A 20G ON THE FIRST ATTEMPT TO THE LEFT FA.
[2017-03-22 20:00] VITALS: BP 106/73
--- NOTE | 2017-03-22 23:00 | NUR ---
PATIENT SITTING UP IN BED, FAMILY IN ROOM. PATIENT STATED "IS IT TIME WHERE I CAN GET SOME DILUADID? DIDN'T YOU GIVE IT TO ME AT 7?" I STATED "NO, YOU STILL HAVE AN HOUR AND 10 MINUTES. I GAVE IT TO YOU AT 8:10." PATIENT STATED "OKAY. I AM HURTING REALLY BAD." PATIENT RATED PAIN AT 8/10. PATIENT DENIES ANY OTHER NEEDS AT THIS TIME.
[2017-03-23] VITALS: BP 86/53
[2017-03-23 00:15] VITALS: BP 82/50
--- NOTE | 2017-03-23 00:15 | NUR ---
GENIE CAME TO ME WITH A BP OF 86/53 USING AUTOMATIC BP MACHINE. WENT IN ROOM TO CHECK BP MANUALLY. PATIENT SLEEPING. I STATED "MRS. JAMES." PATIENT DID NOT OPEN HER EYES, I STATED "HAL" PATIENT DID NOT OPEN HER EYES BUT MADE A 'HMM' NOISE. I STATED "I AM GOING TO CHECK YOUR BLOOD PRESSURE MANUALLY." PATIENT DID NOT SAY ANYTHING OR OPEN HER EYES. CHECKED HER BP MANUALLY, MOVED HER ARM AROUND TO PUT CUFF ON AND OFF, PATIENT DID NOT MOVE HER ARM TO ASSIST IN PUTTING ON OR TAKING OFF THE CUFF. I STATED "HAL" LOUDLY, SHE STATED "YEAH." AND OPENED HER EYES. I STATED "YOUR BLOOD PRESSURE IS LOW. WHY ARE YOU SLEEPING SO HARD?" SHE STATED "I DON'T KNOW. I JUST DO SOMETIMES. PLUS I HAVEN'T HAD VERY MUCH SLEEP LATELY." I RAISED THE FOOT OF THE BED. I TOLD PATIENT "I CANNOT GIVE YOU ANYMORE DILUADID, NOT WITH YOUR BLOOD PRESSURE THIS LOW AND YOU SLEEPING THIS HARD." PATIENT STATED "THAT IS FINE, I AM JUST GLAD I AM SLEEPING."
[2017-03-23 01:11] VITALS: BP 92/60
[2017-03-23 02:20] VITALS: BP 110/60
[2017-03-23 04:00] VITALS: BP 118/89
[2017-03-23 08:06] LABS: BASOPHILS 0.2 % (0-2); EOSINOPHILS 1.6 % (0-7); HEMATOCRIT 34.5 % (36.0-48.0); HEMOGLOBIN 10.7 g/dL (12-16); IMMATURE GRANULOCYTES 0.4 % (0-5); LYMPHOCYTES 25.7 % (15-50); MCH 27.6 pg (26.0-34.0); MCV 88.9 fL (80.0-100.0); MEAN PLATELET VOLUME 9.5 fL (7.4-10.4); MONOCYTES 9.9 % (2-11); NEUTROPHILS 62.2 % (40-80); PLATELET COUNT 417 10x3/uL (130-400); RBC 3.88 10x6/uL (4.00-5.40); RDW 16.3 % (11.5-14.5)
[2017-03-23 08:09] LABS: WBC 11.6 10x3/uL (4.8-10.8)
[2017-03-23 08:20] LABS: ALBUMIN 2.6 g/dL (3.4-5.0); ALKALINE PHOSPHATASE 47 U/L (46-116); ALT (SGPT) 10 U/L (10-68); BILIRUBIN - TOTAL 0.13 mg/dL (0.2-1.3); CALC OSMOLALITY 283 mosm/kg (275-300); CALCIUM 7.8 mg/dL (8.5-10.1); CARBON DIOXIDE 27.8 mmol/L (21.0-32.0); CHLORIDE - SERUM 109 mmol/L (98-107); CREATININE - SERUM 0.6 mg/dL (0.6-1.3); GLUCOSE 84 mg/dL (74-106); POTASSIUM - SERUM 3.4 mmol/L (3.5-5.1); PROTEIN - SERUM 5.3 g/dL (6.4-8.2); SODIUM 145 mmol/L (136-145); eGFR NON AFRICAN AMERICAN > 90 mL/min (90-120)
[2017-03-23 08:24] VITALS: BP 107/71
[2017-03-23 08:24] LABS: UREA NITROGEN 2 mg/dL (7-18)
--- NOTE | 2017-03-23 09:28 | NUR ---
SPOKE WITH DR RANGEL, HE WILL SEE HER ON AN OUTPATIENT BASIS IF NO FURTHER SYMPTOMS OCCUR, WILL REVIEW ULTRASOUND, WILL CALL DR RANGEL IF BLEEDING RETURNS
[2017-03-23] MEDS ORDERED: FLAGYL500 MG PO (11:16)
[2017-03-23] MEDS ORDERED: FLORAJEN3 CAPS460 MG PO (11:17)
[2017-03-23] MEDS ORDERED: PROTONIX40 MG PO (11:17)
[2017-03-23] MEDS ORDERED: PENTASA 250 MG250 MG PO (11:17)
[2017-03-23] MEDS ORDERED: PREDNISONE10 MG PO (11:18)
--- NOTE | 2017-03-23 15:00 | NUR ---
DISCHARGE PAPERS AND INSTRUCTIONS GIVEN, QUESTIONS ANSWERED, IV REMOVED TIP INTACT, DISCHARGED PER WC WITH BELONGINGS
== END 2017-03-23 15:00 | disposition home or self-care (01) | DRG 386 ==
LOC: D.ER 10:06 → D.MS 14:43
PROVIDERS: Emergency Medicine; Internal Medicine Gastroenterology; ADMIT Emergency Medicine
DX: K50.10 Crohn's disease of large intestine without complications (principal); F17.203 Nicotine dependence unspecified, with withdrawal; F41.9 Anxiety disorder, unspecified; J40 Bronchitis, not specified as acute or chronic; F32.9 Major depressive disorder, single episode, unspecified; N93.8 Other specified abnormal uterine and vaginal bleeding

== ENCOUNTER 2017-04-06 13:04 | Emergency (ER) | payer MEDICARE ==
[~2017-04-06 13:04] MED LIST changes: +FLAGYL500 MG PO; +FLORAJEN3 CAPS460 MG PO; +NORCO 7.5/325 T1 TA1 PO; +PENTASA 250 MG250 MG PO; +PROTONIX40 MG PO
[2017-04-06 15:10] LABS: APPEARANCE CLEAR (CLEAR); BILIRUBIN NEGATIVE (NEGATIVE); COLOR YELLOW (YELLOW); GLUCOSE NEGATIVE (NEGATIVE); KETONE NEGATIVE (NEGATIVE); NITRITE NEGATIVE (NEGATIVE); PROTEIN 1+ mg/dL (NEGATIVE); UROBILINOGEN NORMAL (NORMAL)
== END 2017-04-06 17:29 | disposition home or self-care (01) ==
LOC: D.ER 13:04
PROVIDERS: Nurse Practitioner Family
DX: J01.90 Acute sinusitis, unspecified (principal); R05 Cough; M25.50 Pain in unspecified joint; K50.90 Crohn's disease, unspecified, without complications

== ENCOUNTER 2017-04-23 12:29 | Emergency (ER) | payer MEDICARE ==
[2017-04-23 13:18] LABS: BASOPHILS 0.2 % (0-2); EOSINOPHILS 2.9 % (0-7); HEMATOCRIT 36.4 % (36.0-48.0); HEMOGLOBIN 11.4 g/dL (12-16); IMMATURE GRANULOCYTES 0.5 % (0-5); LYMPHOCYTES 20.1 % (15-50); MCH 27.5 pg (26.0-34.0); MCHC 31.3 g/dL (31.0-37.0); MCV 87.9 fL (80.0-100.0); MEAN PLATELET VOLUME 9.3 fL (7.4-10.4); MONOCYTES 12.4 % (2-11); NEUTROPHILS 63.9 % (40-80); PLATELET COUNT 491 10x3/uL (130-400); RBC 4.14 10x6/uL (4.00-5.40); RDW 15.3 % (11.5-14.5)
[2017-04-23 13:29] LABS: ALBUMIN 3.2 g/dL (3.4-5.0); ALKALINE PHOSPHATASE 80 U/L (46-116); ALT (SGPT) 12 U/L (10-68); AMYLASE - SERUM 40 U/L (25-115); BILIRUBIN - TOTAL 0.32 mg/dL (0.2-1.3); CALC OSMOLALITY 271 mosm/kg (275-300); CALCIUM 8.6 mg/dL (8.5-10.1); CARBON DIOXIDE 27.3 mmol/L (21.0-32.0); CHLORIDE - SERUM 99 mmol/L (98-107); CREATININE - SERUM 0.7 mg/dL (0.6-1.3); GLUCOSE 122 mg/dL (74-106); LIPASE 158 U/L (73-393); PROTEIN - SERUM 6.8 g/dL (6.4-8.2); SODIUM 137 mmol/L (136-145); UREA NITROGEN 3 mg/dL (7-18); eGFR NON AFRICAN AMERICAN > 90 mL/min (90-120)
[2017-04-23 16:57] LABS: ERYTHROCYTE SEDIMENTATION RATE 38 mm/hr (0-20)
== END 2017-04-23 16:39 | disposition home or self-care (01) ==
LOC: D.ER 12:29
PROVIDERS: Emergency Medicine; Physician Assistant
DX: R10.32 Left lower quadrant pain (principal); R10.31 Right lower quadrant pain; K50.90 Crohn's disease, unspecified, without complications; M06.9 Rheumatoid arthritis, unspecified; E87.6 Hypokalemia

== ENCOUNTER 2017-05-17 06:34 | Emergency (ER) | payer MEDICARE ==
[2017-05-17 07:25] LABS: BASOPHILS 0.1 % (0-2); EOSINOPHILS 0.7 % (0-7); HEMATOCRIT 36.4 % (36.0-48.0); HEMOGLOBIN 11.3 g/dL (12-16); IMMATURE GRANULOCYTES 0.6 % (0-5); LYMPHOCYTES 14.2 % (15-50); MCH 26.3 pg (26.0-34.0); MCV 84.8 fL (80.0-100.0); MEAN PLATELET VOLUME 9.2 fL (7.4-10.4); MONOCYTES 8.7 % (2-11); NEUTROPHILS 75.7 % (40-80); PLATELET COUNT 426 10x3/uL (130-400); RBC 4.29 10x6/uL (4.00-5.40); RDW 15.9 % (11.5-14.5); WBC 15.9 10x3/uL (4.8-10.8)
== END 2017-05-17 08:50 | disposition home or self-care (01) ==
LOC: D.ER 06:34
PROVIDERS: Family Medicine
DX: R07.89 Other chest pain (principal); K50.90 Crohn's disease, unspecified, without complications; F17.200 Nicotine dependence, unspecified, uncomplicated

== ENCOUNTER 2017-06-15 04:54 | Emergency (ER) | payer MEDICARE | END 2017-06-15 05:55 | disposition home or self-care (01) | LOC: D.ER 04:54 | DX: M25.562 Pain in left knee (principal) ==

== ENCOUNTER 2017-07-09 09:04 | Inpatient (IN) | payer MEDICARE ==
[2017-07-09 10:36] LABS: BASOPHILS 0.2 % (0-2); EOSINOPHILS 0.2 % (0-7); HEMATOCRIT 40.2 % (36.0-48.0); HEMOGLOBIN 12.5 g/dL (12-16); IMMATURE GRANULOCYTES 0.6 % (0-5); LYMPHOCYTES 5.4 % (15-50); MCHC 31.1 g/dL (31.0-37.0); MCV 80.4 fL (80.0-100.0); MEAN PLATELET VOLUME 10.2 fL (7.4-10.4); MONOCYTES 4.3 % (2-11); NEUTROPHILS 89.3 % (40-80); PLATELET COUNT 512 10x3/uL (130-400); RDW 16.4 % (11.5-14.5); WBC 21.8 10x3/uL (4.8-10.8)
[2017-07-09 10:44] LABS: ALBUMIN 3.9 g/dL (3.4-5.0); ALKALINE PHOSPHATASE 68 U/L (46-116); ALT (SGPT) 20 U/L (10-68); AMYLASE - SERUM 78 U/L (25-115); BILIRUBIN - TOTAL 0.47 mg/dL (0.2-1.3); CALC OSMOLALITY 266 mosm/kg (275-300); CALCIUM 9.5 mg/dL (8.5-10.1); CHLORIDE - SERUM 99 mmol/L (98-107); CREATININE - SERUM 0.7 mg/dL (0.6-1.3); GLUCOSE 128 mg/dL (74-106); LIPASE 354 U/L (73-393); POTASSIUM - SERUM 3.5 mmol/L (3.5-5.1); SODIUM 133 mmol/L (136-145); UREA NITROGEN 9 mg/dL (7-18); eGFR NON AFRICAN AMERICAN > 90 mL/min (90-120)
[2017-07-09 11:54] LABS: APPEARANCE SLT CLOUDY (CLEAR); BILIRUBIN NEGATIVE (NEGATIVE); COLOR YELLOW (YELLOW); GLUCOSE NEGATIVE (NEGATIVE); KETONE NEGATIVE (NEGATIVE); NITRITE NEGATIVE (NEGATIVE); PROTEIN TRACE mg/dL (NEGATIVE); UROBILINOGEN NORMAL (NORMAL)
[2017-07-09 11:55] LABS: BACTERIA FEW /hpf (NONE SEEN); MUCUS >1+ /lpf (NONE SEEN); RED CELLS - URINE 0-5 /hpf (0-5)
[2017-07-09] MEDS ORDERED: HUMIRA20 MG/0.4 SQ (18:10)
[2017-07-09] MEDS ORDERED: CREON DR 6,0001 EACH PO (18:11)
[2017-07-09 20:00] VITALS: BP 131/89
[2017-07-10 04:00] VITALS: BP 120/87
[2017-07-10 08:02] VITALS: BP 132/84
[2017-07-10 12:50] VITALS: BP 135/90
[2017-07-10 16:13] VITALS: BP 133/87
[2017-07-10 17:16] LABS: ERYTHROCYTE SEDIMENTATION RATE 11 mm/hr (0-20)
[2017-07-10 20:00] VITALS: BP 136/74
[2017-07-11] VITALS: BP 139/87
[2017-07-11 04:00] VITALS: BP 129/69; BP 144/87
[2017-07-11 04:38] LABS: BASOPHILS 0 % (0-2); EOSINOPHILS 0 % (0-7); HEMATOCRIT 33.9 % (36.0-48.0); HEMOGLOBIN 10.3 g/dL (12-16); IMMATURE GRANULOCYTES 0.4 % (0-5); LYMPHOCYTES 7.1 % (15-50); MCH 24.3 pg (26.0-34.0); MCHC 30.4 g/dL (31.0-37.0); MCV 80.1 fL (80.0-100.0); MONOCYTES 5.6 % (2-11); NEUTROPHILS 86.9 % (40-80); PLATELET COUNT 476 10x3/uL (130-400); RBC 4.23 10x6/uL (4.00-5.40); RDW 16.3 % (11.5-14.5)
[2017-07-11 04:49] LABS: WBC 13.6 10x3/uL (4.8-10.8)
[2017-07-11 05:01] LABS: CALC OSMOLALITY 273 mosm/kg (275-300); CARBON DIOXIDE 23.9 mmol/L (21.0-32.0); CHLORIDE - SERUM 102 mmol/L (98-107); CREATININE - SERUM 0.8 mg/dL (0.6-1.3); GLUCOSE 130 mg/dL (74-106); POTASSIUM - SERUM 3.5 mmol/L (3.5-5.1); SODIUM 137 mmol/L (136-145); UREA NITROGEN 8 mg/dL (7-18); eGFR NON AFRICAN AMERICAN 86 mL/min (90-120)
[2017-07-11 07:58] VITALS: BP 106/76
[2017-07-11 08:49] LABS: LIPASE 148 U/L (73-393)
[2017-07-11 08:52] LABS: AMYLASE - SERUM 47 U/L (25-115)
[2017-07-11 12:23] VITALS: BP 144/86
[2017-07-11 15:55] VITALS: BP 121/81
[2017-07-11 20:00] VITALS: BP 124/81
[2017-07-12] VITALS: BP 109/81
[2017-07-12 04:00] VITALS: BP 109/67
[2017-07-12 04:30] VITALS: BP 109/67; BMI 19.9
[2017-07-12 05:41] LABS: BASOPHILS 0 % (0-2); EOSINOPHILS 0 % (0-7); HEMATOCRIT 29.2 % (36.0-48.0); HEMOGLOBIN 8.7 g/dL (12-16); IMMATURE GRANULOCYTES 0.2 % (0-5); LYMPHOCYTES 6.2 % (15-50); MCH 24.6 pg (26.0-34.0); MCHC 29.8 g/dL (31.0-37.0); MCV 82.5 fL (80.0-100.0); MEAN PLATELET VOLUME 9.9 fL (7.4-10.4); MONOCYTES 10.4 % (2-11); NEUTROPHILS 83.2 % (40-80); PLATELET COUNT 345 10x3/uL (130-400); RBC 3.54 10x6/uL (4.00-5.40); RDW 16.4 % (11.5-14.5); WBC 9.8 10x3/uL (4.8-10.8)
[2017-07-12 06:01] LABS: CALC OSMOLALITY 276 mosm/kg (275-300); CALCIUM 7.6 mg/dL (8.5-10.1); CARBON DIOXIDE 23.4 mmol/L (21.0-32.0); CHLORIDE - SERUM 103 mmol/L (98-107); CREATININE - SERUM 0.7 mg/dL (0.6-1.3); GLUCOSE 143 mg/dL (74-106); POTASSIUM - SERUM 3.4 mmol/L (3.5-5.1); SODIUM 138 mmol/L (136-145); UREA NITROGEN 10 mg/dL (7-18); eGFR NON AFRICAN AMERICAN > 90 mL/min (90-120)
[2017-07-12 09:13] VITALS: BP 115/91
[2017-07-12] MEDS ORDERED: PROTONIX40 MG PO (11:30)
[2017-07-12] MEDS ORDERED: NICODERM C1 PATCH .1 TRANSDERM (11:30)
[2017-07-12] MEDS ORDERED: PEPCID40 MG PO (11:31)
[2017-07-12] MEDS ORDERED: CARAFATE1 G/10 ML PO (11:32)
[2017-07-12 12:29] VITALS: BP 120/80
== END 2017-07-12 13:06 | disposition home or self-care (01) | DRG 385 ==
LOC: D.ER 09:04 → D.MS 12:20 → D.EDHOLD 12:20 → D.MS 16:01
PROVIDERS: Emergency Medicine; Internal Medicine Gastroenterology; Internal Medicine Nephrology
PROC: 0DD68ZX Extraction of Stomach, Via Natural or Artificial Opening Endoscopic, Diagnostic (ICD-10-PCS; 2017-07-11)
PROC: 0DD58ZX Extraction of Esophagus, Via Natural or Artificial Opening Endoscopic, Diagnostic (ICD-10-PCS; 2017-07-11)
PROC: 0DD98ZX Extraction of Duodenum, Via Natural or Artificial Opening Endoscopic, Diagnostic (ICD-10-PCS; principal; 2017-07-11 16:00)
DX: K50.90 Crohn's disease, unspecified, without complications (principal); K29.61 Other gastritis with bleeding; K22.11 Ulcer of esophagus with bleeding; K29.81 Duodenitis with bleeding; F17.203 Nicotine dependence unspecified, with withdrawal; F41.8 Other specified anxiety disorders; F44.5 Conversion disorder with seizures or convulsions

== ENCOUNTER 2017-08-15 09:09 | Emergency (ER) | payer MEDICARE ==
[~2017-08-15 09:09] MED LIST changes: +CARAFATE1 G/10 ML PO; +HUMIRA20 MG/0.4 SQ; +NICODERM C1 PATCH .1 TRANSDERM; +PEPCID40 MG PO
== END 2017-08-15 10:23 | disposition home or self-care (01) ==
LOC: D.ER 09:09
DX: M06.9 Rheumatoid arthritis, unspecified (principal); M79.1 Myalgia; K50.90 Crohn's disease, unspecified, without complications

== ENCOUNTER 2017-12-17 09:07 | Emergency (ER) | payer MEDICARE ==
[~2017-12-17] VITALS: Ht 147.3 cm; Wt 43.6 kg
[2017-12-17 09:11] VITALS: BP 117/74; Ht 147.3 cm; Wt 43.6 kg
== END 2017-12-17 11:10 | disposition left against medical advice (07) ==
LOC: D.ER 09:07
DX: M79.642 Pain in left hand (principal); M79.641 Pain in right hand; M79.605 Pain in left leg; M79.604 Pain in right leg

== ENCOUNTER 2018-02-24 18:30 | Emergency (ER) | payer MEDICARE ==
[~2018-02-24] VITALS: Ht 147.3 cm; Wt 43.6 kg
[2018-02-24 18:36] VITALS: Ht 147.3 cm; Wt 43.6 kg
[2018-02-24] MEDS ORDERED: XANAX0.5 MG PO (18:40)
[2018-02-24] MEDS ORDERED: XELJANZ5 MG PO (18:41)
[2018-02-24 19:54] VITALS: BP 115/75
== END 2018-02-24 19:55 | disposition home or self-care (01) ==
LOC: D.ER 18:30
DX: M06.89 Other specified rheumatoid arthritis, multiple sites (principal); F41.9 Anxiety disorder, unspecified; K50.90 Crohn's disease, unspecified, without complications; F17.200 Nicotine dependence, unspecified, uncomplicated

== ENCOUNTER → 2018-08-15 | Emergency (ER) | payer MEDICARE ==
[~2018-08-15] VITALS: Ht 147.3 cm; Wt 43.6 kg
[~2018-08-15] MED LIST changes: +XANAX0.5 MG PO; +XELJANZ5 MG PO
[2018-08-15 18:34] VITALS: BP 131/92; Ht 147.3 cm; Wt 43.6 kg
== END ==
LOC: D.ER 18:32
DX: R07.81 Pleurodynia (principal)

== ENCOUNTER 2018-08-24 18:38 | Emergency (ER) | payer MEDICARE | END 2018-08-24 20:41 | disposition home or self-care (01) | LOC: D.ER 18:38 | DX: G89.29 Other chronic pain (principal); M06.9 Rheumatoid arthritis, unspecified ==

== ENCOUNTER 2018-09-11 21:33 | Emergency (ER) | payer MEDICARE ==
[~2018-09-11] VITALS: Ht 147.3 cm; Wt 43.5 kg
[2018-09-11 21:36] VITALS: Ht 147.3 cm; Wt 43.5 kg
[2018-09-11 22:19] LABS: BASOPHILS 0 % (0-2); EOSINOPHILS 0.2 % (0-7); HEMATOCRIT 28.1 % (36.0-48.0); IMMATURE GRANULOCYTES 0.9 % (0-5); LYMPHOCYTES 11.7 % (15-50); MCH 19.3 pg (26.0-34.0); MCHC 28.5 g/dL (31.0-37.0); MCV 67.7 fL (80.0-100.0); MEAN PLATELET VOLUME 9.2 fL (7.4-10.4); MONOCYTES 8.5 % (2-11); NEUTROPHILS 78.7 % (40-80); PLATELET COUNT 632 10x3/uL (130-400); RBC 4.15 10x6/uL (4.00-5.40); RDW 19.1 % (11.5-14.5); WBC 20.1 10x3/uL (4.8-10.8)
[2018-09-11 22:23] LABS: ALBUMIN 3.1 g/dL (3.4-5.0); ALKALINE PHOSPHATASE 70 U/L (46-116); ALT (SGPT) 22 U/L (10-68); CALC OSMOLALITY 275 mosm/kg (275-300); CALCIUM 8.8 mg/dL (8.5-10.1); CARBON DIOXIDE 26.7 mmol/L (21.0-32.0); CHLORIDE - SERUM 103 mmol/L (98-107); CREATININE - SERUM 0.7 mg/dL (0.6-1.3); POTASSIUM - SERUM 3.3 mmol/L (3.5-5.1); SODIUM 139 mmol/L (136-145); UREA NITROGEN 6 mg/dL (7-18); eGFR NON AFRICAN AMERICAN > 90 mL/min (90-120)
[2018-09-11 22:29] LABS: GLUCOSE 94 mg/dL (74-106)
[2018-09-11 22:34] LABS: CKMB 2.5 U/L (0.0-3.6); CREATINE KINASE 101 UL (21-215); TROPONIN-I < 0.017 ng/mL (0.000-0.060)
[2018-09-11 22:35] LABS: INR 0.97 (0.85-1.17); PROTIME 12.4 SECONDS (11.6-15.0)
[2018-09-11 22:37] LABS: D-DIMER-QUANTITATIVE 1.52 ug/mLFEU (0.20-0.54)
[2018-09-11 22:43] LABS: APPEARANCE CLEAR (CLEAR); BILIRUBIN NEGATIVE (NEGATIVE); COLOR STRAW (YELLOW); GLUCOSE NEGATIVE (NEGATIVE); KETONE NEGATIVE (NEGATIVE); NITRITE NEGATIVE (NEGATIVE); PROTEIN NEGATIVE (NEGATIVE); SPECIFIC GRAVITY 1.005 (1.005-1.020); UROBILINOGEN NORMAL (NORMAL)
[2018-09-11 22:44] LABS: UDS - AMPHET NEGATIVE QUAL (NEGATIVE); UDS - BARB NEGATIVE QUAL (NEGATIVE); UDS - BENZO POSITIVE QUAL (NEGATIVE); UDS - COCAINE NEGATIVE QUAL (NEGATIVE); UDS - OPIATE POSITIVE QUAL (NEGATIVE); UDS - PCP NEGATIVE QUAL (NEGATIVE); UDS - THC NEGATIVE QUAL (NEGATIVE)
[2018-09-11 23:15] LABS: HCG SERUM NEGATIVE (NEGATIVE)
[2018-09-12] MEDS ORDERED: NAPROSYN500 MG PO (01:38)
[2018-09-12 01:50] VITALS: BP 113/84
[2018-09-13] MEDS ORDERED: CYCLOBENZAPRINE10 MG PO (18:12)
[2018-09-13] MEDS ORDERED: HYDROCODON-ACE1 EA10 PO (18:12)
[2018-09-13] MEDS ORDERED: IBUPROFEN800 MG PO (18:12)
== END 2018-09-12 01:51 | disposition home or self-care (01) ==
LOC: D.ER 21:33
PROVIDERS: Family Medicine
DX: M94.0 Chondrocostal junction syndrome [Tietze] (principal); K50.90 Crohn's disease, unspecified, without complications

== ENCOUNTER 2018-09-13 16:25 | Emergency (ER) | payer MEDICARE ==
[~2018-09-13] VITALS: Ht 147.3 cm; Wt 40.9 kg
[~2018-09-13 16:25] MED LIST changes: +NAPROSYN500 MG PO
[2018-09-13 16:48] VITALS: Ht 147.3 cm; Wt 40.9 kg
[2018-09-13 17:23] LABS: BASOPHILS 0.4 % (0-2); EOSINOPHILS 1.5 % (0-7); HEMATOCRIT 28.6 % (36.0-48.0); IMMATURE GRANULOCYTES 0.8 % (0-5); MCV 68.9 fL (80.0-100.0); MEAN PLATELET VOLUME 8.9 fL (7.4-10.4); MONOCYTES 8.3 % (2-11); PLATELET COUNT 548 10x3/uL (130-400); RBC 4.15 10x6/uL (4.00-5.40); RDW 19.3 % (11.5-14.5); WBC 15.7 10x3/uL (4.8-10.8)
[2018-09-13 17:24] LABS: MCH 19.3 pg (26.0-34.0)
[2018-09-13 17:29] LABS: INR 0.88 (0.85-1.17); PROTIME 11.5 SECONDS (11.6-15.0)
[2018-09-13 17:30] LABS: APTT 31.2 SECONDS (22.8-39.4)
[2018-09-13 17:36] LABS: ALBUMIN 3.3 g/dL (3.4-5.0); ALKALINE PHOSPHATASE 64 U/L (46-116); ALT (SGPT) 18 U/L (10-68); BILIRUBIN - TOTAL 0.14 mg/dL (0.2-1.3); CALC OSMOLALITY 275 mosm/kg (275-300); CALCIUM 8.5 mg/dL (8.5-10.1); CARBON DIOXIDE 27.4 mmol/L (21.0-32.0); CHLORIDE - SERUM 104 mmol/L (98-107); CREATININE - SERUM 0.7 mg/dL (0.6-1.3); GLUCOSE 88 mg/dL (74-106); SODIUM 140 mmol/L (136-145); UREA NITROGEN 7 mg/dL (7-18); eGFR NON AFRICAN AMERICAN > 90 mL/min (90-120)
[2018-09-13 17:37] LABS: POTASSIUM - SERUM 2.9 mmol/L (3.5-5.1)
[2018-09-13] MEDS ORDERED: CYCLOBENZAPRINE10 MG PO (18:12)
[2018-09-13] MEDS ORDERED: IBUPROFEN800 MG PO (18:12)
[2018-09-13] MEDS ORDERED: HYDROCODON-ACE1 EA10 PO (18:12)
[2018-09-13 18:56] VITALS: BP 110/80
== END 2018-09-13 18:57 | disposition home or self-care (01) ==
LOC: D.ER 16:25
PROVIDERS: Family Medicine
DX: T14.8XXA Other injury of unspecified body region, initial encounter (principal); V49.9XXA Car occupant (driver) (passenger) injured in unspecified traffic accident, initial encounter; Y93.89 Activity, other specified; Y92.410 Unspecified street and highway as the place of occurrence of the external cause; M79.18 Myalgia, other site

== ENCOUNTER 2018-09-23 17:16 | Emergency (ER) | payer MEDICARE ==
[~2018-09-23] VITALS: Ht 147.3 cm; Wt 43.6 kg
[~2018-09-23 17:16] MED LIST changes: +CYCLOBENZAPRINE10 MG PO; +HYDROCODON-ACE1 EA10 PO; +IBUPROFEN800 MG PO
[2018-09-23 17:17] VITALS: Ht 147.3 cm; Wt 43.6 kg
[2018-09-23 19:12] VITALS: BP 122/81
== END 2018-09-23 19:13 | disposition home or self-care (01) ==
LOC: D.ER 17:16
DX: M54.9 Dorsalgia, unspecified (principal)

== ENCOUNTER 2018-11-07 15:31 | Emergency (ER) | payer MEDICARE ==
[~2018-11-07] VITALS: Ht 147.3 cm; Wt 44.1 kg
[2018-11-07 15:35] VITALS: Ht 147.3 cm; Wt 44.1 kg
[2018-11-07] MEDS ORDERED: HUMIRA (15:40)
[2018-11-07] MEDS ORDERED: KEPPRA750 MG PO (15:48)
[2018-11-07 16:24] LABS: BASOPHILS 0.1 % (0-2); EOSINOPHILS 0 % (0-7); HEMOGLOBIN 7.9 g/dL (12-16); IMMATURE GRANULOCYTES 0.4 % (0-5); LYMPHOCYTES 6.1 % (15-50); MCHC 29.3 g/dL (31.0-37.0); MCV 67.3 fL (80.0-100.0); MEAN PLATELET VOLUME 8.6 fL (7.4-10.4); MONOCYTES 4.3 % (2-11); NEUTROPHILS 89.1 % (40-80); PLATELET COUNT 609 10x3/uL (130-400); RBC 4.01 10x6/uL (4.00-5.40); RDW 19.1 % (11.5-14.5); WBC 15.5 10x3/uL (4.8-10.8)
[2018-11-07 16:43] LABS: ALBUMIN 3.4 g/dL (3.4-5.0); ALKALINE PHOSPHATASE 63 U/L (46-116); ALT (SGPT) 17 U/L (10-68); BILIRUBIN - TOTAL 0.19 mg/dL (0.2-1.3); CALC OSMOLALITY 276 mosm/kg (275-300); CALCIUM 8.8 mg/dL (8.5-10.1); CHLORIDE - SERUM 101 mmol/L (98-107); CREATININE - SERUM 0.7 mg/dL (0.6-1.3); GLUCOSE 128 mg/dL (74-106); POTASSIUM - SERUM 3.6 mmol/L (3.5-5.1); PROTEIN - SERUM 6.4 g/dL (6.4-8.2); SODIUM 138 mmol/L (136-145); UREA NITROGEN 10 mg/dL (7-18); eGFR NON AFRICAN AMERICAN > 90 mL/min (90-120)
[2018-11-07 16:44] LABS: MCH 19.7 pg (26.0-34.0)
[2018-11-07] MEDS ORDERED: ACETAMINOPHEN500 M1 PO (18:05)
[2018-11-07] MEDS ORDERED: EC-NAPROSYN500 MG PO (18:05)
[2018-11-07 18:32] VITALS: BP 116/72
== END 2018-11-07 18:52 | disposition home or self-care (01) ==
LOC: D.ER 15:31
PROVIDERS: Family Medicine
DX: G40.909 Epilepsy, unspecified, not intractable, without status epilepticus (principal); S52.501A Unspecified fracture of the lower end of right radius, initial encounter for closed fracture; W18.30XA Fall on same level, unspecified, initial encounter; Y93.89 Activity, other specified; Y92.89 Other specified places as the place of occurrence of the external cause

== ENCOUNTER 2018-11-12 08:48 | Inpatient (IN) | payer MEDICARE ==
[2018-11-12] VITALS (7 sets, daily range): BP systolic 84–122; BP diastolic 57–82; BMI 20.1
[~2018-11-12] VITALS: Ht 147.3 cm; Wt 43.5 kg
--- NOTE | ~2018-11-12 | EC ---
PATIENT:HAL JAMES DATE OF SERVICE: 11/12/18 SEX: F MEDICAL RECORD: [id number] DATE OF : [birth year] LOCATION:D. D.121 AGE OF PATIENT: 38 ADMISSION DATE: 11/12/18 REFERRING PHYSICIAN: INTERPRETING PHYSICIAN: SHEFALI BARRON MD ECHOCARDIOGRAM REPORT ECHO CHARGES 4 ECHO COMPLETE Date: 11/13/18 CLINICAL DIAGNOSIS: R/O VEGETATION ECHOCARDIOGRAPHIC MEASUREMENTS (adult normal given) AC root (d.<3.7cm) 2.5 cm LV Septum d (<1.2 cm> 0.9 cm Valve Excursion 1.8 cm LV Septum (systole) 1.5 cm Left Atria (s.<4.0cm> 3.0 cm LVPW d(<1.2cm) 0.9 cm RV (d.<2.3cm) 2.0 cm LVPW (sytole) 1.3 cm LV diastole(<5.6CM) 4.5 cm MV E-F(>70mm/sec) cm LV systole 2.4 cm LVOT Diameter 1.9 cm MV exc.(>10mm) cm Est.ejection fraction (50-75%) % DOPPLER: LVIT cm/sec A 80.0 cm/sec E 89.0 cm/sec LA cm/sec RVSP 28.0 mmHg LVOT 103 cm/sec AOP1/2T m/s Asc. Ao 126 cm/sec RVOT 64.0 cm/sec RA cm/sec PA 80.0 cm/sec AV Gradient Peak 6.3 mmHg AV Mean 3.1 mmHg AV Area 2.4 cm MV Gradient Peak 3.6 mmHg MV Mean 1.7 mmHg MV Area cm COMMENTS: Cross Tie Turner: Teagan [place]IN[place]NAOE Well Services Operator: 1 Dr. Barron TAPE# PACS Pericardial Effusion N DATE OF SERVICE: 11/13/2018 ECHOCARDIOGRAM DATE OF SERVICE: 11/13/2018 FINDINGS: 1. Left ventricular chamber size is within normal limits. Left ventricular systolic function is normal. Overall ejection fraction estimated at 60%. 2. Left atrium, right atrium, right ventricle chamber sizes are within normal ECHOCARDIOGRAM REPORT [id number] HAL JAMES limits. 3. Valvular structures have normal structure and motion. 4. No evidence of vegetative endocarditis. 5. Doppler interrogation reveals mild mitral regurgitation, mild tricuspid regurgitation, no other valvular insufficiency or stenosis. 6. No evidence of pericardial effusion or left ventricular thrombus. TRANSINT:[id number] Voice Confirmation ID: [id number] DOCUMENT ID: [id number] SHEFALI BARRON MD CC: [id number] DICTATION DATE: 11/14/18819 CAR SALESPERSON: 11/14/18828 ADM IN [facility] [address] [place] [address]
[~2018-11-12 08:48] MED LIST changes: +ACETAMINOPHEN500 M1 PO; +EC-NAPROSYN500 MG PO; +HUMIRA
--- NOTE | 2018-11-12 09:18 | NUR ---
RT AT FOR ABG'S
--- NOTE | 2018-11-12 09:30 | NUR ---
IV SITED LEFT HAND AND BC X1 DRAWN. LAB AT BS AND SECOND BC OBTAINED. URINE SPECIMEN OBRAINED, LABELED AT BS AND SENT TO LAB
--- NOTE | 2018-11-12 09:45 | NUR ---
SPOKE WITH DR JOHNSON RE: LR BOLUS PER SEPSIS PROCOL TO BE 1320 ML OK TO ADMIN 2000ML
[2018-11-12 10:03] LABS: APPEARANCE SL CLDY (CLEAR); BACTERIA MANY /hpf (NONE SEEN); BILIRUBIN NEGATIVE (NEGATIVE); COLOR YELLOW (YELLOW); EPITHELIAL CELLS 0-5 /hpf (0-5); GLUCOSE NEGATIVE (NEGATIVE); KETONE NEGATIVE (NEGATIVE); MUCUS <1+ /lpf (NONE SEEN); NITRITE POSITIVE (NEGATIVE); PROTEIN TRACE mg/dL (NEGATIVE); RED CELLS - URINE 0-5 /hpf (0-5); UROBILINOGEN NORMAL (NORMAL)
[2018-11-12 10:06] LABS: HEMATOCRIT 29.2 % (36.0-48.0); HEMOGLOBIN 8.3 g/dL (12-16); MCH 19.1 pg (26.0-34.0); MCHC 28.4 g/dL (31.0-37.0); MCV 67.1 fL (80.0-100.0); PLATELET COUNT 569 10x3/uL (130-400); RBC 4.35 10x6/uL (4.00-5.40); WBC 21.9 10x3/uL (4.8-10.8)
[2018-11-12 10:10] LABS: ALBUMIN 3.2 g/dL (3.4-5.0); ALKALINE PHOSPHATASE 73 U/L (46-116); ALT (SGPT) 14 U/L (10-68); APTT 32.5 SECONDS (22.8-39.4); BILIRUBIN - TOTAL 0.29 mg/dL (0.2-1.3); CALC OSMOLALITY 272 mosm/kg (275-300); CALCIUM 8.6 mg/dL (8.5-10.1); CARBON DIOXIDE 26.1 mmol/L (21.0-32.0); CHLORIDE - SERUM 100 mmol/L (98-107); CREATININE - SERUM 0.8 mg/dL (0.6-1.3); GLUCOSE 100 mg/dL (74-106); INR 1.02 (0.85-1.17); POTASSIUM - SERUM 3.1 mmol/L (3.5-5.1); PROTIME 12.9 SECONDS (11.6-15.0); SODIUM 138 mmol/L (136-145); UREA NITROGEN 5 mg/dL (7-18); eGFR NON AFRICAN AMERICAN 86 mL/min (90-120)
[2018-11-12 10:22] LABS: CKMB 0.3 U/L (0.0-3.6); CREATINE KINASE 25 UL (21-215)
[2018-11-12 10:26] LABS: TROPONIN-I < 0.017 ng/mL (0.000-0.060)
[2018-11-12 10:34] LABS: ANISOCYTOSIS OCC; HYPOCHROMASIA OCC; LYMPHOCYTES 4 % (15-50); MONOCYTES 9 % (2-11); NEUTROPHILS 84 % (40-80); PLATELET ESTIMATE INCREASED
--- NOTE | 2018-11-12 10:34 | NUR ---
RCVD TC FROM LAB LACTATE= 3.5 DR JOHNSON NOTIFIED
--- NOTE | 2018-11-12 10:50 | NUR ---
TO CT VIA STRETCHER WITH SPEECH THERAPIST
--- NOTE | 2018-11-12 11:04 | NUR ---
REPORT TO ALIYA LEYVA BY SBAR FORMAT
--- NOTE | 2018-11-12 11:10 | NUR ---
RTND FROM CT. CONT TO C/O LBP AND SHOEMAKER
--- NOTE | 2018-11-12 11:25 | NUR ---
TRANSPORTED TO FLOOR. CONDITION STABLE. LR AND VANCOMYCIN INFUSING UPON TX TO ROOM
--- NOTE | 2018-11-12 11:29 | NUR ---
RECEIVED PT TO ROOM 1213 VIA STRETCHER PT ABLE TO ABULATE FROM STRETCHER TO BED, PT A/O X4, RESP EVEN AND NONLABORED ON RA. LT HAND IV INFUSING VANC AT 136ML/R. PT RATES PAIN LEVEL OF 5/10. CAST TO RT WIRST AREA. WILL ASSESS PT AND START PLAN OF CARE.
[2018-11-12] MEDS ORDERED: HYDROCODON-ACE1 EAC2 PO (11:31)
[2018-11-12 13:42] LABS: % SATURATION 1 % (15-55); IRON 6 ug/dl (35-150); TOTAL IRON BIND CAPACITY 348 ug/dl (260-445); UNSAT IRON BIND CAPACITY 342 ug/dl (150-375)
--- NOTE | 2018-11-12 14:12 | NUR ---
MEDS GIVEN ORDERED, ALSO GAVE 40MEQ OF K FOR LOW K O F3.1. 4MG OF MORPHINE GIVEN FOR PAIN LEVEL OF 7/10. PT DENIES ANY OTHER NEEDS AT THIS TIME. CALL LIGHT IN REACH, NAD NOTED, WILL CONTINUE TO MONITOR.
--- NOTE | 2018-11-12 14:34 | MORECARE ---
CASE MANAGEMENT DISCHARGE SUMMARY PATIENT: HAL GHOSH UNIT: [id number] ADM DATE: 11/12/18 AGE: 38 : [birth year] SEX: F ROOM/BED: D.1213 AUTHOR: FE,DOC PHYSICIAN: REFERRING PHYSICIAN: AJAY STACY MD DATE OF SERVICE: 11/12/18 Discharge Plan Patient Name: HAL GHOSH Facility: [facility]:Jay Em : 1980 Planned Disposition: Home Anticipated Discharge Date: 11/14/18 Discharge Date: Expected LOS: 2 Initial Reviewer: [email or web address] Initial Review Date: 11/12/2018 Generated: 11/12/18 3:34 pm Comments DCP- Discharge Planning Updated by [email or web address]: Kamila Levin on 11/12/18 1:[address] Patient Name: HAL GHOSH Admission Status: ER Accout number: [id number] Admission Date: 11-12-2018 : 1980 Admission Diagnosis: Attending: AJAY STACY Current LOS: 1 Anticipated DC Date: 11-14-2018 Planned Disposition: Home Primary Insurance: MEDICARE A & B Discharge Planning Comments: CM met with patient and her to complete initial dc planning assessment. CM educated patient on the CM role and verbal consent given by patient to complete assessment. CM verified patient's address, phone number, and emergency contact phone numbers. Patient lives at home with her and reports she is independent in her care at home. At discharge patient plans to return home with her and feels this is a safe discharge. CM discussed availability of home health, rehab services, and medical equipment. Patient denied known discharge needs at this time. Patient reports her will transport her home at time of discharge. CM will continue to follow and will assist as needed with dc plans/needs. Business Functional Analyst: Kamila Levin RN, [facility] DCPIA - Discharge Planning Initial Assessment Updated by [email or web address]: Kamila Levin on 11/12/18 2:32 pm * Is the patient Alert and Oriented? Yes * How many steps to enter\exit or inside your home? two * PCP Dr. Silke Hernandez * Pharmacy [facility] * Preadmission Environment Home with Family * ADLs Independent * Equipment None * List name and contact numbers for known caregivers / representatives who currently or will assist patient after discharge: Arturo Ghosh - spouse - [phone] Denilson Carrasco - father - [phone] * Verbal permission to speak to the caregivers and representatives has been obtained from the patient. Yes * Community resources currently utilized None * Additional services required to return to the preadmission environment? No * Can the patient safely return to the preadmission environment? Yes * Has this patient been hospitalized within the prior 30 days at any hospital? No Patient Name: HAL GHOSH Page [phone] at 1434 All edits/amendments must be made on the electronic document DICTATION DATE: 11/12/181433 TANK SETTER: BEATRIS 11/12/181433 RPT#: [id number] DC DATE: STATUS: ADM IN [facility] [address] [place] [address] END OF REPORT
--- NOTE | 2018-11-12 17:15 | NUR ---
NORCO GIVEN FOR PAIN LEVEL OF 7/10. PT DENIES ANY NEEDS AT THIS TIME. CALL LIGHT IN REACH, NAD NOTED.
--- NOTE | 2018-11-12 19:53 | NUR ---
ROUNDS COMPLETED. VSS, WITH SBP IN UPPER 80'S. WILL REASSESS AND IF IT REMAIN THESAME WILL NOTIFY PROVIDER. PT DENIES ANY PAIN @ THIS TIME. AAOX4. NO S/S OF DISTRESS. SPOUSE @ BEDSIDE. WILL CPOC.
--- NOTE | 2018-11-12 21:09 | NUR ---
PT C/O OF HEAD AND LOWER BACK PAIN. PRN DILAUDID 0.5ML GIVEN @ THIS TIME. PT DENIES ANY FURTHER NEEDS. WILL CPOC.
--- NOTE | 2018-11-12 22:29 | NUR ---
NOTIFIED REENA RASCON ABOUT PT'S LOW BP. BUSINESS DIRECTOR HAS SEEN AND DISCUSSED WITH PT. BUSINESS DIRECTOR ORDERED NS @ 75MLS/HR AND DC'D LR. NS INFUSING. WILL CTM.
[2018-11-13 00:33] VITALS: BP 99/66
--- NOTE | 2018-11-13 02:21 | NUR ---
PT C/O OF LOWER BACK AND HEAD PAIN. PRN IV 0.5ML OF 2OMG/ML DILAUDID GIVEN @ THIS TIME BP 101/76. IV NS INFUSING @ 75MLS/HR. MERREM PB. WILL CTM.
[2018-11-13 04:00] VITALS: BP 103/71
--- NOTE | 2018-11-13 07:10 | NUR ---
RECEIVED REPORT. SITTING UP IN BED ALERT AND ORIENTED X4. AT BEDSIDE. DENIES ANY NEEDS OR PAIN. NO SIGNS OF DISTRESS NOTED. LEFT HAND NS @ 75ML/HR. TELEMETRY 110 ST. CALL LIGHT WITHIN REACH, FALL PRECAUTIONS IN PLACE. WILL CONTINUE TO MONITOR
[2018-11-13 08:54] LABS: HEMATOCRIT 26.6 % (36.0-48.0); RBC 3.91 10x6/uL (4.00-5.40); WBC 22.4 10x3/uL (4.8-10.8)
[2018-11-13 08:55] LABS: BASOPHILS 0.2 % (0-2); EOSINOPHILS 1.4 % (0-7); HEMOGLOBIN 7.5 g/dL (12-16); IMMATURE GRANULOCYTES 0.4 % (0-5); LYMPHOCYTES 11.2 % (15-50); MCH 19.2 pg (26.0-34.0); MCHC 28.2 g/dL (31.0-37.0); MONOCYTES 9.6 % (2-11); NEUTROPHILS 77.2 % (40-80); PLATELET COUNT 416 10x3/uL (130-400); RDW 19.2 % (11.5-14.5)
[2018-11-13 09:12] LABS: ALBUMIN 2.6 g/dL (3.4-5.0); ALKALINE PHOSPHATASE 67 U/L (46-116); ALT (SGPT) 15 U/L (10-68); BILIRUBIN - TOTAL 0.21 mg/dL (0.2-1.3); CALC OSMOLALITY 279 mosm/kg (275-300); CALCIUM 8.4 mg/dL (8.5-10.1); CARBON DIOXIDE 28.3 mmol/L (21.0-32.0); CHLORIDE - SERUM 107 mmol/L (98-107); CREATININE - SERUM 0.8 mg/dL (0.6-1.3); GLUCOSE 93 mg/dL (74-106); POTASSIUM - SERUM 3.5 mmol/L (3.5-5.1); PROTEIN - SERUM 6.1 g/dL (6.4-8.2); SODIUM 142 mmol/L (136-145); UREA NITROGEN 4 mg/dL (7-18); eGFR NON AFRICAN AMERICAN 86 mL/min (90-120)
[2018-11-13 09:42] VITALS: BP 96/69
--- NOTE | 2018-11-13 12:15 | NUR ---
SITTING UP IN BED EATING LUNCH.
[2018-11-13 12:25] VITALS: BP 101/72
--- NOTE | 2018-11-13 15:04 | NUR ---
LYING IN BED ON RIGHT SIDE EYES CLOSED RESTING. RR EVEN AND UNLABORED. AT BEDSIDE
--- NOTE | 2018-11-13 18:07 | NUR ---
SITTING UP IN BED PLUCKING EYEBROWS. C/O BACK PAIN 11/19 ADMININSTERED NORCO PER PT REQUEST. NO OTHER CONCERNS VOICED.
--- NOTE | 2018-11-13 18:36 | NUR ---
WRAPPED PT RIGHT ARM CAST IN ORDER FOR PT TO PERFORME INDEPENDENT SHOWER, ALSO DISCONNECTED LEFT HAND DELAYED PUMP FOR 60 MIN, CALLED [employer] AND INFORMED PT WAS OFF TELE FOR SHOWER. IN ROOM TO ASSIST PT.
--- NOTE | 2018-11-13 19:30 | NUR ---
RECEIVED PATIENT. A/O PRESENT AT BEDSIDE. RR EVEN AND UNLABORED. C/O OF LOWER BACK PAIN. DENIES ANY NEEDS AT THIS TIME.
[2018-11-13 20:00] VITALS: BP 100/66
[2018-11-14] VITALS: BP 100/70
--- NOTE | 2018-11-14 01:00 | NUR ---
ADMINISTERED ORDERED PAIN MEDICATION. PT C/O LOWER BACK PAIN. NO FURTHER NEEDS EXPRESSED. CALL LIGHT IN REACH
[2018-11-14 07:26] LABS: CALC OSMOLALITY 282 mosm/kg (275-300); CALCIUM 8.2 mg/dL (8.5-10.1); CARBON DIOXIDE 30.6 mmol/L (21.0-32.0); CHLORIDE - SERUM 107 mmol/L (98-107); CREATININE - SERUM 0.7 mg/dL (0.6-1.3); GLUCOSE 82 mg/dL (74-106); POTASSIUM - SERUM 3.3 mmol/L (3.5-5.1); SODIUM 144 mmol/L (136-145); UREA NITROGEN 5 mg/dL (7-18); eGFR NON AFRICAN AMERICAN > 90 mL/min (90-120)
[2018-11-14 07:28] LABS: BASOPHILS 0.1 % (0-2); EOSINOPHILS 1.9 % (0-7); HEMATOCRIT 24.3 % (36.0-48.0); IMMATURE GRANULOCYTES 0.4 % (0-5); LYMPHOCYTES 16.2 % (15-50); MCV 68.6 fL (80.0-100.0); MEAN PLATELET VOLUME 9.4 fL (7.4-10.4); MONOCYTES 9.6 % (2-11); NEUTROPHILS 71.8 % (40-80); PLATELET COUNT 412 10x3/uL (130-400); RBC 3.54 10x6/uL (4.00-5.40); RDW 19.2 % (11.5-14.5)
[2018-11-14 07:32] LABS: HEMOGLOBIN 6.8 g/dL (12-16); MCH 19.2 pg (26.0-34.0); WBC 12.9 10x3/uL (4.8-10.8)
[2018-11-14 08:21] VITALS: BP 79/51
[2018-11-14 09:50] VITALS: Ht 147.3 cm; Wt 43.5 kg
--- NOTE | 2018-11-14 11:18 | NUR ---
PRBC STARTED AT THIS TIME.
--- NOTE | 2018-11-14 11:50 | NUR ---
PT C/O NAUSEA. PROVIDED WITH PHENERGRAN. PT PRBC INFUSING AND PT TOLERATING WELL.
[2018-11-14] MEDS ORDERED: CIPRO500 MG PO (13:02)
[2018-11-14 13:05] VITALS: BP 110/84
--- NOTE | 2018-11-14 14:32 | NUR ---
PRBC INFUSION COMPLETED AT THIS TIME. PT DENIES NEEDS. WCTM.
[2018-11-14 15:11] VITALS: BP 129/72
--- NOTE | 2018-11-14 16:43 | NUR ---
PT DISCHARGE INSTRUCTIONS REV'D AND PT STATES UNDERSTANDING. PT REQ SCRIPT FOR PAIN MEDICATION. SPOKE WITH DR STACY. DR STACY GAVE ORDERS TO ALTERNATE TYLENOL AND IBUPROFEN. EXPLAINED TO PT. PT BEING ESCORTED OUT VIA WHEELCHAIR BY HOSPITAL STAFF. PT DISCHARGING HOME WITH FAMILY AT THIS TIME.
--- NOTE | 2018-11-14 17:30 | MORECARE ---
CASE MANAGEMENT DISCHARGE SUMMARY PATIENT: HAL GHOSH UNIT: [id number] ADM DATE: 11/12/18 AGE: 38 : 84 SEX: F ROOM/BED: D.1213 AUTHOR: FE,DOC PHYSICIAN: REFERRING PHYSICIAN: AJAY STACY MD DATE OF SERVICE: 11/14/18 Discharge Plan Patient Name: HAL GHOSH Facility: [facility]:[place] : 1980 Planned Disposition: Home Anticipated Discharge Date: 11/14/18 Discharge Date: 11/14/2018 Expected LOS: 2 Initial Reviewer: [email or web address] Initial Review Date: 11/12/2018 Generated: 11/14/18 6:30 pm DCP- Discharge Planning Updated by [email or web address]: Kamila Levin on 11/12/18 1:[address] Patient Name: HAL GHOSH Admission Status: ER Accout number: [id number] Admission Date: 11-12-2018 : 1980 Admission Diagnosis: Attending: AJAY STACY Current LOS: 1 Anticipated DC Date: 11-14-2018 Planned Disposition: Home Primary Insurance: MEDICARE A & B Discharge Planning Comments: CM met with patient and her to complete initial dc planning assessment. CM educated patient on the CM role and verbal consent given by patient to complete assessment. CM verified patient's address, phone number, and emergency contact phone numbers. Patient lives at home with her and reports she is independent in her care at home. At discharge patient plans to return home with her and feels this is a safe discharge. CM discussed availability of home health, rehab services, and medical equipment. Patient denied known discharge needs at this time. Patient reports her will transport her home at time of discharge. CM will continue to follow and will assist as needed with dc plans/needs. [place] Sole Layer: Kamila Levin RN, [facility] DCPIA - Discharge Planning Initial Assessment Updated by [email or web address]: Kamila Levin on 11/12/18 2:32 pm * Is the patient Alert and Oriented? Yes * How many steps to enter\exit or inside your home? two * PCP Dr. Silke Hernandez * Pharmacy [facility] * Preadmission Environment Home with Family * ADLs Independent * Equipment None * List name and contact numbers for known caregivers / representatives who currently or will assist patient after discharge: Arturo Ghosh - spouse - [phone] Denilson Carrasco - father - [phone] * Verbal permission to speak to the caregivers and representatives has been obtained from the patient. Yes * Community resources currently utilized None * Additional services required to return to the preadmission environment? No * Can the patient safely return to the preadmission environment? Yes * Has this patient been hospitalized within the prior 30 days at any hospital? No Last DP export: 11/12/18 1:34 pm Patient Name: HAL GHOSH Page [id number] at 1730 All edits/amendments must be made on the electronic document DICTATION DATE: 11/14/181729 FULLER BRUSH MAN: BEATRIS 11/14/181729 RPT#: [id number] DC DATE:11/14/18 STATUS: DIS IN [facility] [address] [place] [address] END OF REPORT
== END 2018-11-14 16:44 | disposition home or self-care (01) | DRG 872 ==
LOC: D.ER 08:48 → D.M3 10:46
PROVIDERS: Family Medicine; ADMIT Internal Medicine Nephrology; ATTEND Internal Medicine Nephrology
DX: A41.9 Sepsis, unspecified organism (principal); N39.0 Urinary tract infection, site not specified; N12 Tubulo-interstitial nephritis, not specified as acute or chronic; K50.90 Crohn's disease, unspecified, without complications; F17.203 Nicotine dependence unspecified, with withdrawal; N17.9 Acute kidney failure, unspecified; D50.9 Iron deficiency anemia, unspecified; E87.6 Hypokalemia; F44.89 Other dissociative and conversion disorders; F41.8 Other specified anxiety disorders

== ENCOUNTER 2018-11-24 18:54 | Emergency (ER) | payer MEDICARE ==
[~2018-11-24] VITALS: Ht 147.3 cm; Wt 43.6 kg
[~2018-11-24 18:54] MED LIST changes: +CIPRO500 MG PO; +HYDROCODON-ACE1 EAC2 PO
[2018-11-24 19:00] VITALS: Ht 147.3 cm; Wt 43.6 kg
[2018-11-24 21:38] LABS: HEMATOCRIT 36.3 % (36.0-48.0); MCH 21.6 pg (26.0-34.0); MCHC 30.3 g/dL (31.0-37.0); MCV 71.3 fL (80.0-100.0); MEAN PLATELET VOLUME 9.5 fL (7.4-10.4); PLATELET COUNT 514 10x3/uL (130-400); RBC 5.09 10x6/uL (4.00-5.40); WBC 27.3 10x3/uL (4.8-10.8)
[2018-11-24 21:50] LABS: ALBUMIN 3.8 g/dL (3.4-5.0); ALKALINE PHOSPHATASE 77 U/L (46-116); ALT (SGPT) 18 U/L (10-68); BILIRUBIN - TOTAL 0.19 mg/dL (0.2-1.3); CALC OSMOLALITY 272 mosm/kg (275-300); CALCIUM 8.9 mg/dL (8.5-10.1); CARBON DIOXIDE 30.1 mmol/L (21.0-32.0); CHLORIDE - SERUM 100 mmol/L (98-107); CREATININE - SERUM 0.8 mg/dL (0.6-1.3); GLUCOSE 84 mg/dL (74-106); MAGNESIUM - SERUM 2.1 mg/dL (1.8-2.4); POTASSIUM - SERUM 3.2 mmol/L (3.5-5.1); PROTEIN - SERUM 7.3 g/dL (6.4-8.2); SODIUM 138 mmol/L (136-145); UREA NITROGEN 6 mg/dL (7-18); eGFR NON AFRICAN AMERICAN 86 mL/min (90-120)
[2018-11-24 22:00] LABS: LYMPHOCYTES 18 % (15-50); MONOCYTES 7 % (2-11); NEUTROPHILS 70 % (40-80); PLATELET ESTIMATE NORMAL
[2018-11-24 22:19] LABS: APPEARANCE CLEAR (CLEAR); BILIRUBIN NEGATIVE (NEGATIVE); COLOR STRAW (YELLOW); GLUCOSE NEGATIVE (NEGATIVE); KETONE NEGATIVE (NEGATIVE); NITRITE NEGATIVE (NEGATIVE); PROTEIN NEGATIVE (NEGATIVE); SPECIFIC GRAVITY 1.005 (1.005-1.020); UROBILINOGEN NORMAL (NORMAL)
[2018-11-24 22:25] LABS: UDS - AMPHET NEGATIVE QUAL (NEGATIVE); UDS - BARB NEGATIVE QUAL (NEGATIVE); UDS - BENZO NEGATIVE QUAL (NEGATIVE); UDS - COCAINE NEGATIVE QUAL (NEGATIVE); UDS - OPIATE POSITIVE QUAL (NEGATIVE); UDS - PCP NEGATIVE QUAL (NEGATIVE); UDS - THC POSITIVE QUAL (NEGATIVE)
[2018-11-25 00:10] VITALS: BP 95/60
== END 2018-11-25 00:10 | disposition home or self-care (01) ==
LOC: D.ER 18:54
PROVIDERS: Family Medicine
DX: R56.9 Unspecified convulsions (principal); S01.81XA Laceration without foreign body of other part of head, initial encounter; W19.XXXA Unspecified fall, initial encounter; D72.829 Elevated white blood cell count, unspecified; F17.200 Nicotine dependence, unspecified, uncomplicated

== ENCOUNTER 2018-12-09 11:05 | Emergency (ER) | payer MEDICARE ==
[~2018-12-09] VITALS: Ht 147.3 cm; Wt 43.6 kg
[2018-12-09 11:26] VITALS: Ht 147.3 cm; Wt 43.6 kg
[2018-12-09 12:20] LABS: ALBUMIN 3.3 g/dL (3.4-5.0); ALKALINE PHOSPHATASE 71 U/L (46-116); ALT (SGPT) 11 U/L (10-68); BILIRUBIN - TOTAL 0.27 mg/dL (0.2-1.3); CALC OSMOLALITY 275 mosm/kg (275-300); CALCIUM 8.6 mg/dL (8.5-10.1); CARBON DIOXIDE 26.7 mmol/L (21.0-32.0); CHLORIDE - SERUM 103 mmol/L (98-107); CREATININE - SERUM 0.7 mg/dL (0.6-1.3); GLUCOSE 73 mg/dL (74-106); POTASSIUM - SERUM 3.2 mmol/L (3.5-5.1); PROTEIN - SERUM 6.9 g/dL (6.4-8.2); SODIUM 139 mmol/L (136-145); UREA NITROGEN 9 mg/dL (7-18); eGFR NON AFRICAN AMERICAN > 90 mL/min (90-120)
[2018-12-09 12:45] LABS: APPEARANCE CLEAR (CLEAR); BILIRUBIN NEGATIVE (NEGATIVE); COLOR YELLOW (YELLOW); GLUCOSE NEGATIVE (NEGATIVE); KETONE NEGATIVE (NEGATIVE); NITRITE NEGATIVE (NEGATIVE); PROTEIN NEGATIVE (NEGATIVE); SPECIFIC GRAVITY 1.005 (1.005-1.020); UROBILINOGEN NORMAL (NORMAL)
[2018-12-09 12:48] LABS: HEMATOCRIT 35.2 % (36.0-48.0); HEMOGLOBIN 10.4 g/dL (12-16); LYMPHOCYTES 19.8 % (15-50); MCH 22.2 pg (26.0-34.0); MCHC 29.5 g/dL (31.0-37.0); MCV 75.2 fL (80.0-100.0); MEAN PLATELET VOLUME 10.6 fL (7.4-10.4); NEUTROPHILS 70.1 % (40-80); PLATELET COUNT 430 10x3/uL (130-400); RBC 4.68 10x6/uL (4.00-5.40); RDW 24.8 % (11.5-14.5); WBC 15.3 10x3/uL (4.8-10.8)
[2018-12-09] MEDS ORDERED: FERROUS GLUCON324 MG PO (13:20)
[2018-12-09] MEDS ORDERED: K-TAB10 MEQ PO (13:20)
[2018-12-09 13:35] LABS: % SATURATION 5 % (15-55); IRON 20 ug/dl (35-150); TOTAL IRON BIND CAPACITY 379 ug/dl (260-445); UNSAT IRON BIND CAPACITY 359 ug/dl (150-375)
[2018-12-09 13:59] VITALS: BP 133/85
== END 2018-12-09 13:55 | disposition home or self-care (01) ==
LOC: D.ER 11:05
PROVIDERS: Emergency Medicine
DX: M06.9 Rheumatoid arthritis, unspecified (principal); M54.5 Low back pain; F17.210 Nicotine dependence, cigarettes, uncomplicated

== ENCOUNTER 2019-03-06 15:00 | Emergency (ER) | payer MEDICARE ==
[~2019-03-06] VITALS: Ht 147.3 cm; Wt 43.6 kg
[~2019-03-06 15:00] MED LIST changes: +FERROUS GLUCON324 MG PO; +K-TAB10 MEQ PO
[2019-03-06 15:06] VITALS: Ht 147.3 cm; Wt 43.6 kg
[2019-03-06] MEDS ORDERED: ZOFRAN ODT4 MG/UDTAB PO (15:23)
[2019-03-06 15:38] LABS: BASOPHILS 0.2 % (0-2); EOSINOPHILS 1.6 % (0-7); HEMOGLOBIN 10.4 g/dL (12-16); IMMATURE GRANULOCYTES 0.5 % (0-5); LYMPHOCYTES 22.5 % (15-50); MCH 22.5 pg (26.0-34.0); MCHC 29.7 g/dL (31.0-37.0); MCV 75.6 fL (80.0-100.0); MEAN PLATELET VOLUME 9.5 fL (7.4-10.4); MONOCYTES 9.6 % (2-11); NEUTROPHILS 65.6 % (40-80); RBC 4.63 10x6/uL (4.00-5.40); RDW 17.3 % (11.5-14.5); WBC 15.3 10x3/uL (4.8-10.8)
[2019-03-06 15:50] LABS: CALC OSMOLALITY 277 mosm/kg (275-300); CALCIUM 8.9 mg/dL (8.5-10.1); CHLORIDE - SERUM 102 mmol/L (98-107); CREATININE - SERUM 0.8 mg/dL (0.6-1.3); POTASSIUM - SERUM 3.1 mmol/L (3.5-5.1); SODIUM 139 mmol/L (136-145); UREA NITROGEN 11 mg/dL (7-18); eGFR NON AFRICAN AMERICAN 85 mL/min (90-120)
[2019-03-06 15:54] LABS: GLUCOSE 111 mg/dL (74-106)
[2019-03-06 15:56] LABS: ALBUMIN 3.6 g/dL (3.4-5.0); ALKALINE PHOSPHATASE 62 U/L (46-116); ALT (SGPT) 19 U/L (10-68); BILIRUBIN - TOTAL 0.26 mg/dL (0.2-1.3); LIPASE 154 U/L (73-393); PROTEIN - SERUM 7.2 g/dL (6.4-8.2)
[2019-03-06 15:57] LABS: PLATELET COUNT 631 10x3/uL (130-400); UDS - AMPHET NEGATIVE QUAL (NEGATIVE); UDS - BARB NEGATIVE QUAL (NEGATIVE); UDS - BENZO NEGATIVE QUAL (NEGATIVE); UDS - COCAINE NEGATIVE QUAL (NEGATIVE); UDS - OPIATE POSITIVE QUAL (NEGATIVE); UDS - PCP NEGATIVE QUAL (NEGATIVE); UDS - THC POSITIVE QUAL (NEGATIVE)
[2019-03-06 16:07] LABS: APPEARANCE CLEAR (CLEAR); BILIRUBIN NEGATIVE (NEGATIVE); COLOR YELLOW (YELLOW); GLUCOSE NEGATIVE (NEGATIVE); KETONE NEGATIVE (NEGATIVE); NITRITE NEGATIVE (NEGATIVE); PROTEIN TRACE mg/dL (NEGATIVE); SPECIFIC GRAVITY 1.015 (1.005-1.020); UROBILINOGEN NORMAL (NORMAL)
[2019-03-06 16:08] LABS: BACTERIA MODERATE /hpf (NEGATIVE); EPITHELIAL CELLS 0-5 /hpf (0-5); RED CELLS - URINE OCC /hpf (0-5); WHITE CELLS - URINE OCC /hpf (NEGATIVE)
[2019-03-06 17:14] VITALS: BP 132/82
== END 2019-03-06 17:15 | disposition home or self-care (01) ==
LOC: D.ER 15:00
PROVIDERS: Family Medicine
DX: R11.2 Nausea with vomiting, unspecified (principal); E87.6 Hypokalemia

== ENCOUNTER 2019-03-17 14:26 | Emergency (ER) | payer MEDICARE ==
[~2019-03-17] VITALS: Ht 147.3 cm; Wt 43.6 kg
[2019-03-17 14:29] VITALS: Ht 147.3 cm; Wt 43.6 kg
[2019-03-17 15:13] LABS: BASOPHILS 0.3 % (0-2); EOSINOPHILS 1.1 % (0-7); HEMATOCRIT 36.6 % (36.0-48.0); HEMOGLOBIN 10.8 g/dL (12-16); IMMATURE GRANULOCYTES 0.7 % (0-5); LYMPHOCYTES 19.5 % (15-50); MCH 21.9 pg (26.0-34.0); MCHC 29.5 g/dL (31.0-37.0); MCV 74.1 fL (80.0-100.0); MONOCYTES 10.8 % (2-11); NEUTROPHILS 67.6 % (40-80); PLATELET COUNT 735 10x3/uL (130-400); RBC 4.94 10x6/uL (4.00-5.40); RDW 16.7 % (11.5-14.5); WBC 18.8 10x3/uL (4.8-10.8)
[2019-03-17 15:26] LABS: CALC OSMOLALITY 265 mosm/kg (275-300); CALCIUM 8.9 mg/dL (8.5-10.1); CHLORIDE - SERUM 100 mmol/L (98-107); CREATININE - SERUM 0.8 mg/dL (0.6-1.3); GLUCOSE 93 mg/dL (74-106); POTASSIUM - SERUM 3.7 mmol/L (3.5-5.1); SODIUM 134 mmol/L (136-145); UREA NITROGEN 8 mg/dL (7-18); eGFR NON AFRICAN AMERICAN 85 mL/min (90-120)
[2019-03-17 15:33] LABS: ALBUMIN 3.7 g/dL (3.4-5.0); ALKALINE PHOSPHATASE 79 U/L (46-116); ALT (SGPT) 27 U/L (10-68); PROTEIN - SERUM 7.4 g/dL (6.4-8.2)
[2019-03-17 16:41] LABS: APPEARANCE CLEAR (CLEAR); BILIRUBIN NEGATIVE (NEGATIVE); COLOR YELLOW (YELLOW); GLUCOSE NEGATIVE (NEGATIVE); KETONE NEGATIVE (NEGATIVE); NITRITE NEGATIVE (NEGATIVE); PROTEIN NEGATIVE (NEGATIVE); UROBILINOGEN NORMAL (NORMAL)
[2019-03-17] MEDS ORDERED: STERAPRED DS 1010 MG PO (20:10)
[2019-03-17] MEDS ORDERED: FLAGYL500 MG PO (20:12)
[2019-03-17 20:46] VITALS: BP 105/78
== END 2019-03-17 20:46 | disposition home or self-care (01) ==
LOC: D.ER 14:26
PROVIDERS: Emergency Medicine
DX: K50.90 Crohn's disease, unspecified, without complications (principal); R51 Headache; F17.210 Nicotine dependence, cigarettes, uncomplicated

== ENCOUNTER → 2019-05-25 14:48 | Outpatient (CLI) | payer MEDICARE ==
[2019-03-17 14:29] VITALS: BMI 20.1
[~2019-05-25 14:48] MED LIST changes: +STERAPRED DS 1010 MG PO
== END | disposition home or self-care (01) ==
LOC: D.MRI 14:48
PROVIDERS: ATTEND Orthopaedic Surgery
DX: M90.561 Osteonecrosis in diseases classified elsewhere, right lower leg (principal)

== ENCOUNTER 2019-06-10 15:49 | Emergency (ER) | payer MEDICARE ==
[~2019-06-10] VITALS: Ht 147.3 cm; Wt 40.5 kg
[2019-06-10 16:13] VITALS: Ht 147.3 cm; Wt 40.5 kg
[2019-06-10 16:35] LABS: BASOPHILS 0.2 % (0-2); EOSINOPHILS 1.5 % (0-7); HEMATOCRIT 36.2 % (36.0-48.0); HEMOGLOBIN 10.8 g/dL (12-16); IMMATURE GRANULOCYTES 0.7 % (0-5); LYMPHOCYTES 23.8 % (15-50); MCH 20.3 pg (26.0-34.0); MCHC 29.8 g/dL (31.0-37.0); MCV 67.9 fL (80.0-100.0); MEAN PLATELET VOLUME 9.2 fL (7.4-10.4); NEUTROPHILS 61.8 % (40-80); PLATELET COUNT 721 10x3/uL (130-400); RBC 5.33 10x6/uL (4.00-5.40); WBC 16.1 10x3/uL (4.8-10.8)
[2019-06-10 16:45] LABS: CALC OSMOLALITY 263 mosm/kg (275-300); CALCIUM 8.6 mg/dL (8.5-10.1); CARBON DIOXIDE 28.9 mmol/L (21.0-32.0); CHLORIDE - SERUM 95 mmol/L (98-107); CREATININE - SERUM 0.9 mg/dL (0.6-1.3); GLUCOSE 105 mg/dL (74-106); POTASSIUM - SERUM 3.3 mmol/L (3.5-5.1); SODIUM 132 mmol/L (136-145); UREA NITROGEN 11 mg/dL (7-18); eGFR NON AFRICAN AMERICAN 75 mL/min (90-120)
[2019-06-10 16:54] LABS: ALBUMIN 3.7 g/dL (3.4-5.0); ALKALINE PHOSPHATASE 77 U/L (30-120); ALT (SGPT) 53 U/L (10-68); AMYLASE - SERUM 72 U/L (25-115); LIPASE 205 U/L (73-393); PROTEIN - SERUM 7.8 g/dL (6.4-8.2)
[2019-06-10 16:55] LABS: TROPONIN-I < 0.017 ng/mL (0.000-0.060)
[2019-06-10 17:51] LABS: APPEARANCE CLEAR (CLEAR); BACTERIA FEW /hpf (NEGATIVE); BILIRUBIN NEGATIVE (NEGATIVE); COLOR YELLOW (YELLOW); EPITHELIAL CELLS 0-5 /hpf (0-5); GLUCOSE NEGATIVE (NEGATIVE); KETONE NEGATIVE (NEGATIVE); NITRITE NEGATIVE (NEGATIVE); PROTEIN NEGATIVE (NEGATIVE); RED CELLS - URINE 0-5 /hpf (0-5); UROBILINOGEN NORMAL (NORMAL); WHITE CELLS - URINE 0-5 /hpf (NEGATIVE)
[2019-06-10 17:57] LABS: HCG URINE NEGATIVE (NEGATIVE)
[2019-06-10] MEDS ORDERED: ZOFRAN ODT4 MG/UDTAB PO (19:43)
[2019-06-10] MEDS ORDERED: MACROBID100 MG PO (19:43)
[2019-06-10] MEDS ORDERED: KEFLEX500 MG PO (19:43)
[2019-06-10 19:55] VITALS: BP 120/74
== END 2019-06-10 19:55 | disposition home or self-care (01) ==
LOC: D.ER 15:49
PROVIDERS: Family Medicine
DX: R11.2 Nausea with vomiting, unspecified (principal); R10.9 Unspecified abdominal pain; E87.6 Hypokalemia; E87.1 Hypo-osmolality and hyponatremia; D72.829 Elevated white blood cell count, unspecified